=== PATIENT | male | born 1950 | race Caucasian/White ===

== ENCOUNTER → 2016-08-21 | Outpatient (CLI) | payer OTHER ==
[2016-02-24 06:00] VITALS: BP 196/84
[~2016-08-21] MED LIST: AMLO10TA2 PO; ASPI325T4 PO; ATEN100T PO; CHOL500015 PO; CIPR500T94 PO; CLIN-44 PO; CYAN500T17 PO; FURO80TA3 PO; HYDR-2869 PO; ISOS60TA2 PO; LISI40TA PO; LOVA40TA2 PO; METF500T4 PO; METF500T9 PO; MULT-246 PO; OMEG300C PO; OMEP40CA5 PO; POTA10TA31 PO; SERT100T8 PO
--- NOTE | 2016-08-21 12:53 | CARD ---
APPROVED REPORT EXAM: Two-dimensional and M-mode echocardiogram with Doppler and color Doppler. Other Information Quality : FairHR: 65bpm Rhythm : NSR INDICATION Peripheral edema, Dyspnea on exertion RISK FACTORS Hypertension Obesity Family History Diabetes 2D DIMENSIONS RVDd2.6 (2.9-3.5cm)Left Atrium(2D)4.1 (1.6-4.0cm) IVSd1.0 (0.7-1.1cm)Aortic Root(2D)3.2 (2.0-3.7cm) LVDd6.1 (3.9-5.9cm)LVOT Diameter2.4 (1.8-2.4cm) PWd1.0 (0.7-1.1cm)LVDs4.3 (2.5-4.0cm) FS (%) 30.3 %SV106.6 ml LVEF(%)56.8 (>50%) Aortic Valve AoV Peak Angelo.126.7cm/sAoV VTI28.2cm AO Peak GR.6.4mmHgLVOT Peak Angelo.96.3cm/s AO Mean GR.4mmHgAVA (VMAX)3.31cm2 Mitral Valve MV E Uahhqnbl896.2cm/sMV E Peak Gr.3mmHg MV DECEL [id number] A Affitlva88.1cm/s MV E Mean Gr.1mmHgE/A Ratio2.3 MV A [id number] Pulmonary Valve PV Peak Wmykjsyq800.4cm/s Pulmonary Vein S1 Wjtodzub17.8cm/sD2 Rtubzuxl33.1cm/s PVa [id number] LEFT VENTRICLE The left ventricle is normal size. There is normal left ventricular wall thickness. The left ventricu lar systolic function is normal. The Ejection Fraction is 55-60%. There is normal LV segmental wall m otion. The left ventricular diastolic function and filling is normal for age. RIGHT VENTRICLE The right ventricle is normal size. There is normal right ventricular wall thickness. The right ventr icular systolic function is normal. ATRIA The left atrium is mildly dilated. The right atrium size is normal. The interatrial septum is intact with no evidence for an atrial septal defect or patent foramen ovale as noted on 2-D or Doppler imagi ng. AORTIC VALVE The aortic valve is mildly sclerotic. The aortic valve is trileaflet. Doppler and Color Flow revealed no significant aortic regurgitation. There is no significant aortic valvular stenosis. MITRAL VALVE Mitral annular calcification is mild. The mitral valve leaflets are thickened. There is no evidence o f mitral valve prolapse. There is no mitral valve stenosis. Doppler and Color Flow revealed no mitral valve regurgitation noted. TRICUSPID VALVE The tricuspid valve is normal in structure and function. Doppler and Color Flow revealed trace tricus pid valve regurgitation. There is no pulmonary hypertension. PULMONIC VALVE Doppler and Color Flow revealed trace pulmonic valvular regurgitation. There is no pulmonic valvular stenosis. GREAT VESSELS The aortic root is normal in size. The ascending aorta is normal in size. The pulmonary artery is nor mal. The IVC is normal in size and collapses >50% with inspiration. PERICARDIAL EFFUSION There is no evidence of significant pericardial effusion. Critical Notification Critical Value: No <Conclusion> The left ventricular systolic function is normal. The Ejection Fraction is 55-60%. There is normal LV segmental wall motion. The left atrium is mildly dilated. Trace tricuspid valve regurgitation. There is no evidence of significant pericardial effusion.
== END | disposition home or self-care (01) ==
LOC: ECHO 08:48
PROVIDERS: ATTEND Physician Assistant
DX: R60.9 Edema, unspecified (principal); R06.09 Other forms of dyspnea
CPT/HCPCS: 93306

== ENCOUNTER → 2017-10-06 | Outpatient (CLI) | payer OTHER | END | disposition home or self-care (01) | LOC: US 12:36 | DX: I73.9 Peripheral vascular disease, unspecified (principal); M62.81 Muscle weakness (generalized); R60.0 Localized edema | CPT/HCPCS: 93922; 93925; 93970 ==

== ENCOUNTER 2018-11-28 02:20 | Emergency (ER) | payer MEDICARE, OTHER ==
[~2018-11-28] VITALS: Ht 177.8 cm; Wt 165.1 kg
[~2018-11-28 02:20] MED LIST changes: -AMLO10TA2 PO; +AMLO10TA8 PO; -ASPI325T4 PO; +ASPI325T8 PO; -CHOL500015 PO; +CHOL500045 PO; -CLIN-44 PO; +CLIN150C14 PO; +LISI-130 PO; -LISI40TA PO; +METF500T16 PO; -METF500T4 PO
[2018-11-28 03:41] LABS: BASO % 0 % (0-3); EOS # 0.1 x10^3/uL (0.0-0.7); EOS % 2 % (0-3); HEMATOCRIT 43.8 % (39.0-53.0); LYMPH % 22 % (24-48); MEAN CORPUSCULAR HEMOGLOBIN 31 pg (25-35); MEAN CORPUSCULAR HGB CONC 34 g/dL (31-37); MEAN CORPUSCULAR VOLUME 92 fL (79-100); MONO # 0.8 x10^3/uL (0.0-1.1); MONO % 9 % (0-9); NEUT % 68 % (31-73); PLATELET COUNT 134 x10^3/uL (140-400); RED BLOOD COUNT 4.78 x10^6/uL (4.30-5.70); RED CELL DISTRIBUTION WIDTH 14.5 % (11.5-14.5); WHITE BLOOD COUNT 8.9 x10^3/uL (4.0-11.0)
[2018-11-28] MEDS ORDERED: ONDANSETRON PF 4 MG/2 ML VIAL. IV ONE (03:45)
[2018-11-28] MEDS ORDERED: FAMOTIDINE 20 MG/2 ML VIAL IVP ONE (03:45)
[2018-11-28 03:50] LABS: PROTHROMBIN TIME PATIENT 13.6 SEC (11.7-14.0)
[2018-11-28 03:52] LABS: CALCIUM 9.2 mg/dL (8.5-10.1); CREATININE 1.4 mg/dL (0.7-1.3); GFR 50.7; POTASSIUM 3.7 mmol/L (3.5-5.1)
[2018-11-28 03:58] LABS: ALBUMIN 3.7 g/dL (3.4-5.0); ALBUMIN/GLOBULIN RATIO 0.9 (1.0-1.7); MAGNESIUM 2.1 mg/dL (1.8-2.4); TOTAL BILIRUBIN 0.4 mg/dL (0.2-1.0); TOTAL PROTEIN 7.6 g/dL (6.4-8.2)
[2018-11-28] MEDS ORDERED: CONTRAST GIVEN. MC PRN (04:00)
[2018-11-28] MEDS ORDERED: IOHEXOL 240 MG/ML 50ML VIAL. PO ONE (04:00)
[2018-11-28 04:05] VITALS: BP 162/86
[2018-11-28 05:34] LABS: BILIRUBIN,URINE NEGATIVE (NEG); CLARITY,URINE CLEAR; COLOR,URINE YELLOW; NITRITE,URINE NEGATIVE (NEG); PH,URINE 5.5; PROTEIN,URINE NEGATIVE (NEG-TRACE)
--- NOTE | 2018-11-28 05:46 | RAD ---
EXAM: CT Abdomen and Pelvis with IV contrast CLINICAL HISTORY: Upper abdominal pain. COMPARISON: none TECHNIQUE: Helical CT of the abdomen and pelvis was performed following the administration of intravenous contrast. Axial, coronal and sagittal reformatted images were generated. PQRS compliance statement - One or more of the following individualized dose reduction techniques were utilized for this study: 1. Automated exposure control 2. Adjustment of the mA and/or kV according to patient size 3. Use of iterative reconstruction technique FINDINGS: Lower chest: Linear opacities in the lower lobes likely scarring/atelectasis. Calcified granuloma right lower lobe. A 3.3 x 2.6 cm paracardiac soft tissue mass is seen. Abdomen and Pelvis: No focal liver lesion. Calcified gallstone is seen within the gallbladder. No biliary ductal dilatation. Spleen is unremarkable. Adrenal glands and pancreas are unremarkable. Multiple bilateral renal lesions are seen measuring greater than simple fluid. For example a 5.7 cm left lower pole renal lesion measures 75 Hounsfield units. Although these may represent hemorrhagic/proteinaceous cysts, parenchymal masses are not excluded and should be further assessed with by ultrasound. No hydronephrosis. No hydroureter. Bladder is unremarkable. Moderate colonic stool content is seen. Appendix is normal. No evidence for bowel obstruction. Small fat-containing periumbilical hernia is seen. Bones: Degenerative changes of the spine and SI joints are seen. No aggressive osseous lesion. IMPRESSION: 1. Fat-containing periumbilical hernia is seen. 2. Calcified gallstone is seen within the gallbladder. 3. A 3.3 cm paracardiac soft tissue mass is seen about the cardiac apex, nonspecific. This may represent an enlarged lymph node however other mediastinal mass is not excluded. This may compared to prior imaging if available. If further imaging is required consider dedicated CT chest. 4. Multiple bilateral renal lesions are seen measuring greater than simple fluid. Although these may represent hemorrhagic/proteinaceous cysts, parenchymal mass not excluded and can be further assessed by ultrasound if not previously performed. Electronically signed by: Jose Rodriguez MD (11/28/2018 5:43 AM) [facility]
[2018-11-28 06:01] LABS: BACTERIA,URINE 0 /HPF (0-FEW); RBC,URINE 0 /HPF (0-2)
[2018-11-28 06:02] LABS: SQUAMOUS EPITHELIAL CELL,UR FEW /LPF
[2018-11-28] MEDS ORDERED: FAMO-63 PO (06:42)
[2018-11-28] MEDS ORDERED: ONDA4TAB12 PO (06:42)
[2018-11-28] MEDS ORDERED: MAGN296S9 PO (06:42)
[2018-11-28] MEDS ORDERED: SENN-121 PO (06:42)
--- NOTE | 2018-11-28 06:42 | PHYS DOC ---
Past Medical History Past Medical History: CHF Additional Past Medical Histor: CLEAR CARDIAC CATH IN PAST. TURP x 2. COPD. CPAP Q hS. NO o2 DURING DAY. Past Surgical History: TURP Additional Past Surgical Histo: Adenoids, Hernia, Carpal Tunnel, Neck fusion () Alcohol Use: None Drug Use: None Adult General Chief Complaint Chief Complaint: ABDOMINAL PAIN HPI HPI Patient is a 68 year old [f__sex] who presents with [] Review of Systems Review of Systems Constitutional: Denies fever or chills [] Eyes: Denies change in visual acuity, redness, or eye pain [] HENT: Denies nasal congestion or sore throat [] Respiratory: Denies cough or shortness of breath [] Cardiovascular: No additional information not addressed in HPI [] GI: Denies abdominal pain, nausea, vomiting, bloody stools or diarrhea [] : Denies dysuria or hematuria [] Musculoskeletal: Denies back pain or joint pain [] Integument: Denies rash or skin lesions [] Neurologic: Denies headache, focal weakness or sensory changes [] Endocrine: Denies polyuria or polydipsia [] All other systems were reviewed and found to be within normal limits, except as documented in this note. Current Medications Current Medications Current Medications Medications (Trade) Dose Ordered Sig/Gina Start Time Stop Time Status Last Admin Dose Admin Famotidine (Pepcid Vial) 20 mg 1X ONCE 11/28/18 03:45 11/28/18 03:46 DC 11/28/18 03:56 20 MG Info (CONTRAST GIVEN -- Rx MONITORING) 1 each PRN DAILY PRN 11/28/18 04:00 11/30/18 03:59 Iohexol (Omnipaque 240 Mg/ml) 30 ml 1X ONCE 11/28/18 04:00 11/28/18 04:01 DC 11/28/18 03:49 30 ML Ondansetron HCl (Zofran) 4 mg 1X ONCE 11/28/18 03:45 11/28/18 03:46 DC 11/28/18 03:56 4 MG Allergies Allergies Allergies Coded Allergies Type Severity Reaction Last Updated Verified No Known Drug Allergies 11/07/15 No Physical Exam Physical Exam Constitutional: Well developed, well nourished, no acute distress, non-toxic appearance. [] HENT: Normocephalic, atraumatic, bilateral external ears normal, oropharynx moist, no oral exudates, nose normal. [] Eyes: PERRLA, EOMI, conjunctiva normal, no discharge. [] Neck: Normal range of motion, no tenderness, supple, no stridor. [] Cardiovascular:Heart rate regular rhythm, no murmur [] Lungs & Thorax: Bilateral breath sounds clear to auscultation [] Abdomen: Bowel sounds normal, soft, no tenderness, no masses, no pulsatile ma sses. [] Skin: Warm, dry, no erythema, no rash. [] Back: No tenderness, no CVA tenderness. [] Extremities: No tenderness, no cyanosis, no clubbing, ROM intact, no edema. [] Neurologic: Alert and oriented X 3, normal motor function, normal sensory function, no focal deficits noted. [] Psychologic: Affect normal, judgement normal, mood normal. [] Current Patient Data Vital Signs Vital Signs Date Time Temp Pulse Resp B/P (MAP) Pulse Ox O2 Delivery O2 Flow Rate FiO2 11/28/18 04:05 98.4 57 18 162/86 (111) 95 Room Air 98.4 Lab Values Laboratory Tests Test 11/28/18 03:00 11/28/18 05:25 White Blood Count 8.9 x10^3/uL (4.0-11.0) Red Blood Count 4.78 x10^6/uL (4.30-5.70) Hemoglobin 15.0 g/dL (13.0-17.5) Hematocrit 43.8 % (39.0-53.0) Mean Corpuscular Volume 92 fL (79-100) Mean Corpuscular Hemoglobin 31 pg (25-35) Mean Corpuscular Hemoglobin Concent 34 g/dL (31-37) Red Cell Distribution Width 14.5 % (11.5-14.5) Platelet Count 134 x10^3/uL (140-400) L Neutrophils (%) (Auto) 68 % (31-73) Lymphocytes (%) (Auto) 22 % (24-48) L Monocytes (%) (Auto) 9 % (0-9) Eosinophils (%) (Auto) 2 % (0-3) Basophils (%) (Auto) 0 % (0-3) Neutrophils # (Auto) 6.0 x10^3uL (1.8-7.7) Lymphocytes # (Auto) 2.0 x10^3/uL (1.0-4.8) Monocytes # (Auto) 0.8 x10^3/uL (0.0-1.1) Eosinophils # (Auto) 0.1 x10^3/uL (0.0-0.7) Basophils # (Auto) 0.0 x10^3/uL (0.0-0.2) Prothrombin Time 13.6 SEC (11.7-14.0) Prothrombin Time INR 1.1 (0.8-1.1) PTT 34 SEC (24-38) Sodium Level 141 mmol/L (136-145) Potassium Level 3.7 mmol/L (3.5-5.1) Chloride Level 103 mmol/L (98-107) Carbon Dioxide Level 29 mmol/L (21-32) Anion Gap 9 (6-14) Blood Urea Nitrogen 25 mg/dL (8-26) Creatinine 1.4 mg/dL (0.7-1.3) H Estimated GFR (Cockcroft-Gault) 50.7 BUN/Creatinine Ratio 18 (6-20) Glucose Level 150 mg/dL (70-99) H Calcium Level 9.2 mg/dL (8.5-10.1) Magnesium Level 2.1 mg/dL (1.8-2.4) Total Bilirubin 0.4 mg/dL (0.2-1.0) Aspartate Amino Transferase (AST) 27 U/L (15-37) Alanine Aminotransferase (ALT) 33 U/L (16-63) Alkaline Phosphatase 76 U/L (46-116) Creatine Kinase 548 U/L (39-308) H Creatine Kinase MB (Mass) 5.0 ng/mL (0.0-3.6) H Creatine Kinase MB Relative Index 0.9 % (0-4) Troponin I Quantitative < 0.017 ng/mL (0.000-0.055) Total Protein 7.6 g/dL (6.4-8.2) Albumin 3.7 g/dL (3.4-5.0) Albumin/Globulin Ratio 0.9 (1.0-1.7) L Lipase 207 U/L (73-393) Urine Collection Type Unknown Urine Color Yellow Urine Clarity Clear Urine pH 5.5 Urine Specific [place] 1.020 Urine Protein Negative mg/dL (NEG-TRACE) Urine Glucose (UA) Negative mg/dL (NEG) Urine Ketones (Stick) Negative mg/dL (NEG) Urine Blood Negative (NEG) Urine Nitrite Negative (NEG) Urine Bilirubin Negative (NEG) Urine Urobilinogen Dipstick 1.0 mg/dL (0.2 mg/dL) Urine Leukocyte Esterase Small (NEG) Urine RBC 0 /HPF (0-2) Urine WBC 1-4 /HPF (0-4) Urine Squamous Epithelial Cells Few /LPF Urine Bacteria 0 /HPF (0-FEW) Laboratory Tests 11/28/18 03:00 Laboratory Tests 11/28/18 03:00 EKG EKG @0340 NSR at 61bpm, occasional PVC, t wave inversion III Radiology/Procedures Radiology/Procedures PROCEDURE: CT ABD PEL W/ORAL CONTRST ONLY EXAM: CT Abdomen and Pelvis with IV contrast CLINICAL HISTORY: Upper abdominal pain. COMPARISON: none TECHNIQUE: Helical CT of the abdomen and pelvis was performed following the administration of intravenous contrast. Axial, coronal and sagittal reformatted images were generated. PQRS compliance statement - One or more of the following individualized dose reduction techniques were utilized for this study: 1. Automated exposure control 2. Adjustment of the mA and/or kV according to patient size 3. Use of iterative reconstruction technique FINDINGS: Lower chest: Linear opacities in the lower lobes likely scarring/atelectasis. Calcified granuloma right lower lobe. A 3.3 x 2.6 cm paracardiac soft tissue mass is seen. Abdomen and Pelvis: No focal liver lesion. Calcified gallstone is seen within the gallbladder. No biliary ductal dilatation. Spleen is unremarkable. Adrenal glands and pancreas are unremarkable. Multiple bilateral renal lesions are seen measuring greater than simple fluid. For example a 5.7 cm left lower pole renal lesion measures 75 Hounsfield units. Although these may represent hemorrhagic/proteinaceous cysts, parenchymal masses are not excluded and should be further assessed with by ultrasound. No hydronephrosis. No hydroureter. Bladder is unremarkable. Moderate colonic stool content is seen. Appendix is normal. No evidence for bowel obstruction. Small fat-containing periumbilical hernia is seen. Bones: Degenerative changes of the spine and SI joints are seen. No aggressive osseous lesion. IMPRESSION: 1. Fat-containing periumbilical hernia is seen. 2. Calcified gallstone is seen within the gallbladder. 3. A 3.3 cm paracardiac soft tissue mass is seen about the cardiac apex, nonspecific. This may represent an enlarged lymph node however other mediastinal mass is not excluded. This may compared to prior imaging if available. If further imaging is required consider dedicated CT chest. 4. Multiple bilateral renal lesions are seen measuring greater than simple fluid. Although these may represent hemorrhagic/proteinaceous cysts, parenchymal mass not excluded and can be further assessed by ultrasound if not previously performed. Electronically signed by: Jose Rodriguez MD (11/28/2018 5:43 AM) [facility] Course & Med Decision Making Course & Med Decision Making Pertinent Labs and Imaging studies reviewed. (See chart for details) [] Dragon Disclaimer Dragon Disclaimer This electronic medical record was generated, in whole or in part, using a voice recognition dictation system. Departure Departure Impression: Primary Impression: Abdominal pain Additional Impressions: Constipation Hernia Abnormal CT of the abdomen Disposition: HOME, SELF-CARE Condition: STABLE Referrals: RONI WILEY MD (PCP) YOLETTE ALLEN MD Patient Instructions: Abdominal Pain (Nonspecific), Constipation, Adult, [id number], Hernia, [id number], Incidental Abnormal Radiological Finding Additional Instructions: Please given copy of CT imaging to your family physician for further evaluation. Scripts Magnesium Citrate (MAGNESIUM CITRATE) 296 Ml Solution 296 ML PO ONCE, #296 ML Prov: TAI YODER DO 11/28/18 Sennosides/Docusate Sodium (Colace 2-in-1 Tablet) 1 Each Tablet 1 EACH PO QHS, #20 TAB Prov: TAI YODER DO 11/28/18 Famotidine (PEPCID) 20 Mg Tablet 20 MG PO BID, #20 TAB Prov: TAI YODER DO 11/28/18 Ondansetron (ONDANSETRON ODT) 4 Mg Tab.rapdis 1 TAB PO PRN Q6-8HRS PRN for NAUSEA, #16 TAB Prov: TAI YODER DO 11/28/18 Problem Qualifiers Primary Impression: Abdominal pain Abdominal location: generalized Qualified Codes: R10.84 - Generalized abdominal pain Additional Impressions: Constipation Constipation type: unspecified constipation type Qualified Codes: K59.00 - Constipation, unspecified TAI YODER DO Nov 28, 2018 06:42
--- NOTE | 2018-11-28 13:01 | EKG ---
[facility] [address] [place] [address] Test Date: 2018-11-28 Test Time: 03:40:54 Pat Name: RITU BRIAN Department: Room: Gender: M [employer] Electric[employer]: : 1950 Requested By: TAI YODER Order Number: [id number] Reading MD: Measurements Intervals [place] Rate: 60 P: AK: QRS: -71 QRSD: 100 T: -5 QT: 428 QTc: 432 Interpretive Statements ATRIAL FIBRILLATION VENTRICULAR PREMATURE COMPLEX(ES) ABNORMAL LEFT AXIS DEVIATION QRS(T) CONTOUR ABNORMALITY CONSIDER ANTEROSEPTAL MYOCARDIAL DAMAGE CONSISTENT WITH INFERIOR INFARCT AGE UNDETERMINED ABNORMAL ECG No previous ECG available for comparison
== END 2018-11-28 06:45 | disposition home or self-care (01) ==
LOC: ER 02:20
DX: K42.9 Umbilical hernia without obstruction or gangrene (principal); K59.00 Constipation, unspecified; R93.5 Abnormal findings on diagnostic imaging of other abdominal regions, including retroperitoneum; K80.80 Other cholelithiasis without obstruction; J44.9 Chronic obstructive pulmonary disease, unspecified; Z98.1 Arthrodesis status; Z98.890 Other specified postprocedural states; Z86.79 Personal history of other diseases of the circulatory system
CPT/HCPCS: 36415; 74176; 80053; 81001; 82553; 83690; 83735; 84484; 85025; 85610; 85730; 87086; 93005; 96374; 96375; 99285; J2405; J3490; Q9966

== ENCOUNTER → 2018-12-08 | Outpatient (CLI) | payer MEDICARE ==
[2018-11-28 04:05] VITALS: BP 162/86
[~2018-12-08] MED LIST changes: +FAMO-63 PO; +MAGN296S9 PO; +ONDA4TAB12 PO; +SENN-121 PO
--- NOTE | 2018-12-08 14:43 | RAD ---
CT scan of the chest without contrast 12/08/2018 CLINICAL HISTORY: 3.3 cm paracardiac soft tissue mass seen on CT scan of the abdomen. TECHNIQUE: Unenhanced, contiguous, 5 mm axial sections were obtained through the chest and upper abdomen. One or more of the following individualized dose reduction techniques were utilized for this study: 1. Automated exposure control. 2. Adjustment of the mA and/or kV according to patient size. 3. Use of iterative reconstruction technique. FINDINGS: Comparison is made to patient's CT scan of the abdomen dated 11/28/2018. Atherosclerotic calcification of the thoracic aorta is seen. The thoracic aorta tapers normally. Calcified right hilar and mediastinal lymph nodes are seen. There is mild cardiomegaly. No hilar, mediastinal or axillary lymphadenopathy is noted. Calcified granulomas are seen involving the right lower lobe, unchanged. A 2.4 cm bulla/bleb is seen involving the medial aspect of the right upper lobe. Minimal dependent subsegmental atelectasis is seen involving both lungs. No area of consolidation is seen. No pleural effusion or pneumothorax is noted. A 3.5 cm oval-shaped low-attenuation mass is seen within the epicardial fat near the apex of the heart. This likely represents a pericardial cyst. It is unchanged. Images through the upper abdomen are unchanged. Degenerative changes are seen involving the thoracic spine. Mild S-shaped curvature of the thoracolumbar spine is seen. IMPRESSION: 1. 3.5 cm probable pericardial cyst is seen in the apex of the heart. This corresponds seen on the patient's CT scan of the abdomen. 2. No acute abnormality is seen. Electronically signed by: Franki Tobias MD (12/08/2018 2:40 PM) [place] [id number]
--- NOTE | 2018-12-08 16:16 | RAD ---
RENAL COMPLETE BILATERAL History: Renal lesion Comparison: November 28, 2018 CT abdomen pelvis exam Findings: Multiple sonographic images of the kidneys and urinary bladder are submitted. Right kidney measured 21 x 6.4 x 9.3 cm. Left kidney measured 17.3 x 6.1 x 7.5 cm. Measurements include multiple hypoechoic lesions of the bilateral kidneys. Largest hypoechoic lesion superiorly of the right kidney measured about 9.9 cm. Largest lesion of the superior left kidney measures about 7.8 cm. No hypervascular solid lesion is demonstrated by ultrasound. There is no significant hydronephrosis of either kidney. Urinary bladder is not well-distended for evaluation. Impression: 1. There are multiple likely cysts of the bilateral kidneys, no significant hydronephrosis of either kidney. Electronically signed by: Young Fuentes MD (12/08/2018 4:13 PM) [facility]
== END | disposition home or self-care (01) ==
LOC: US 10:39
PROVIDERS: ATTEND Physician Assistant Medical
DX: J98.11 Atelectasis (principal); J98.4 Other disorders of lung; J84.10 Pulmonary fibrosis, unspecified; I51.7 Cardiomegaly; I70.0 Atherosclerosis of aorta; N28.89 Other specified disorders of kidney and ureter; M47.894 Other spondylosis, thoracic region
CPT/HCPCS: 71250; 76770

== ENCOUNTER → 2019-03-17 | Outpatient (CLI) | payer MEDICARE ==
[~2019-03-17] MED LIST changes: +METF500T11 PO; -METF500T9 PO; +OMEP40CA45 PO; -OMEP40CA5 PO
--- NOTE | 2019-03-17 09:39 | CARD ---
MR#: [id number] Date of Study: 03/17/2019 Ordering Physician: BELLA HAYS, Referring Physician: BELLA HAYS, Tech: Leonila Rogel [facility] APPROVED REPORT EXAM: Two-dimensional and M-mode echocardiogram with Doppler and color Doppler. Other Information Quality : Technically LimitedHR: 77bpm Rhythm : NSRTechnically limited study due to body habitus. INDICATION Pericardial Cyst 2D DIMENSIONS RVDd3.1 (2.9-3.5cm)Left Atrium(2D)5.0 (1.6-4.0cm) IVSd1.0 (0.7-1.1cm)Aortic Root(2D)3.2 (2.0-3.7cm) LVDd5.0 (3.9-5.9cm)LVOT Diameter2.4 (1.8-2.4cm) PWd1.2 (0.7-1.1cm)LVDs2.3 (2.5-4.0cm) FS (%) 54.8 %SV101.5 ml LVEF(%)85.3 (>50%) Aortic Valve AoV Peak Angelo.135.3cm/sAoV VTI27.2cm AO Peak GR.7.3mmHgLVOT Peak Angelo.117.7cm/s LVOT VTI 23.23cmAO Mean GR.5mmHg SUDHAKAR (VMAX)2.63ew6BJF (VTI)3.85cm2 Mitral Valve MV E Diysafzb642.1cm/sMV DECEL PAIT330xk MV A Wvnmkjfc64.4cm/sMV DKS39mb E/A Ratio2.7MVA (PHT)3.84cm2 Pulmonary Valve PV Peak Pasctdjj89.5cm/sPV Peak Grad.3mmHg Pulmonary Vein S1 Kyyvpwei78.4cm/sD2 Vnkujfkk50.9cm/s LEFT VENTRICLE The left ventricle is normal size. There is normal left ventricular wall thickness. The left ventricu lar systolic function is normal. The Ejection Fraction is 60-65%. There is normal LV segmental wall m otion. Transmitral Doppler flow pattern is Grade II-pseudonormal filling dynamics. RIGHT VENTRICLE The right ventricle is normal size. There is normal right ventricular wall thickness. The right ventr icular systolic function is normal. ATRIA The left atrium is moderately dilated. The right atrium is mildly dilated. The interatrial septum is intact with no evidence for an atrial septal defect or patent foramen ovale as noted on 2-D or Dopple r imaging. AORTIC VALVE The aortic valve is thickened but opens well. The aortic valve is trileaflet. Doppler and Color Flow revealed no significant aortic regurgitation. There is no significant aortic valvular stenosis. MITRAL VALVE The mitral valve is normal in structure and function. There is no evidence of mitral valve prolapse. There is no mitral valve stenosis. Doppler and Color-flow revealed trace mitral regurgitation. TRICUSPID VALVE The tricuspid valve is normal in structure and function. Doppler and Color Flow revealed no tricuspid valve regurgitation noted. There is no tricuspid valve prolapse or vegetation. There is no tricuspid valve stenosis. PULMONIC VALVE The pulmonic valve is not well visualized. GREAT VESSELS The aortic root is normal in size. The ascending aorta is normal in size. The IVC is normal in size a nd collapses >50% with inspiration. PERICARDIAL EFFUSION There is no evidence of significant pericardial effusion. Critical Notification Critical Value: No <Conclusion> The left ventricular systolic function is normal. The Ejection Fraction is 60-65%. There is normal LV segmental wall motion. Trace mitral regurgitation. There is no evidence of significant pericardial effusion. Signed by : Len Mccall, Electronically Approved : 03/17/2019 09:39:13
== END | disposition home or self-care (01) ==
LOC: ECHO 07:48
PROVIDERS: ATTEND Internal Medicine Cardiovascular Disease
DX: Q24.8 Other specified congenital malformations of heart (principal)
CPT/HCPCS: 93306

== ENCOUNTER → 2019-04-07 | Outpatient (CLI) | payer MEDICARE | END | disposition home or self-care (01) | LOC: OPS 11:15 | PROVIDERS: ATTEND Family Medicine | DX: N30.01 Acute cystitis with hematuria (principal); R33.8 Other retention of urine | CPT/HCPCS: 51798 ==

== ENCOUNTER → 2019-07-18 | Outpatient (CLI) | payer MEDICARE ==
[~2019-07-18] MED LIST changes: +CONTRAST GIVEN. MC PRN; +IOHEXOL 300 MG/ML 100ML VIAL. IV ONE; +MAGN296S68 PO; -MAGN296S9 PO
[2019-07-18 08:54] LABS: CREATININE 1.3 mg/dL (0.7-1.3); GFR 55.1
--- NOTE | 2019-07-18 15:57 | RAD ---
CT the chest with and without IV contrast compared to similar exam dated December 08, 2018 for pericardial cyst. TECHNIQUE AND FINDINGS: Contiguous helical 3 mm axial images are obtained from the thoracic inlet to the base of diaphragm both before and after administration of IV contrast. Sagittal and coronal reformations are evaluated. FINDINGS:There is respiratory motion artifact degrading the spatial resolution the lungs to some extent. There is likely some degree of pulmonary edema at the lung bases. Densely calcified granuloma seen in the right posterior lung base. No areas of pneumonic infiltrate are seen and no suspicious lung nodules or masses are evident. Central airways are patent. Heart is enlarged. There are numerous calcified hilar lymph nodes. No suspicious mediastinal, hilar, or axillary lymphadenopathy is seen. There are renal cysts bilaterally which are incompletely evaluated on this exam. No grossly suspicious features of the visualized portions of these cysts are identified. Remaining visualized upper abdominal organs are grossly unremarkable as well. The previously described circumscribed ovoid structure within the anterior pericardium is redemonstrated and appears unchanged in morphology but is slightly enlarged today measuring 4.4 x 2.6 cm. This abnormality has Hounsfield units of 24 on noncontrast imaging, which is higher than expected for simple fluid, but does not enhance, with Hounsfield images units of 27 on contrast enhanced imaging. This likely represents a benign pericardial cyst with complex fluid, but could likely be definitively characterized as simple and benign with echocardiography if clinically warranted. IMPRESSION: 1. Interval development of cardiomegaly with pulmonary edema. No pleural effusions. 2. 4.4 cm ovoid circumscribed nonenhancing benign-appearing epicardial abnormality which is slightly larger than on the prior examination, and most likely represents a benign pericardial cyst. Fluid is slightly higher than expected for simple fluid. If clinically warranted, definitive characterization via transthoracic echocardiography could be pursued. RS Compliance Statement: One or more of the following individualized dose reduction techniques were utilized for this examination: 1. Automated exposure control 2. Adjustment of the mA and/or kV according to patient size 3. Use of iterative reconstruction technique Electronically signed by: Constantino Friedman MD (07/18/2019 3:55 PM) [facility]
== END | disposition home or self-care (01) ==
LOC: CT 08:38
PROVIDERS: ATTEND Internal Medicine Cardiovascular Disease
DX: J81.1 Chronic pulmonary edema (principal); I51.7 Cardiomegaly; J84.10 Pulmonary fibrosis, unspecified; Q24.8 Other specified congenital malformations of heart
CPT/HCPCS: 36415; 71270; 82565; 84520; Q9967

== ENCOUNTER 2019-08-07 11:23 | Observation (INO) | payer MEDICARE ==
[~2019-08-07] VITALS: Ht 177.8 cm; Wt 166.9 kg
[~2019-08-07 11:23] MED LIST changes: -CONTRAST GIVEN. MC PRN; -IOHEXOL 300 MG/ML 100ML VIAL. IV ONE
--- NOTE | 2019-08-07 11:51 | PHYS DOC ---
Past Medical History Past Medical History: CHF Additional Past Medical Histor: CLEAR CARDIAC CATH IN PAST. TURP x 2. COPD. CPAP Q hS. NO o2 DURING DAY. Past Surgical History: TURP Additional Past Surgical Histo: Adenoids, Hernia, Carpal Tunnel, Neck fusion () Smoking Status: Never Smoker Alcohol Use: None Drug Use: None Adult General Chief Complaint Chief Complaint: CHEST PAIN HPI HPI Patient is a 69-year-old male who presents to the emergency department for evaluation. He states that about 10:30 AM this morning he began experiencing some anterior chest pressure, which has been waxing and waning. The pain is also described as an achiness. He has had associated shortness of breath, but denies any pleuritic pain. He has not had any fevers, chills, or cough. He denies any nausea, vomiting, or diaphoresis. He states about a week ago he had a similar episode of pain, which resolved after he belched, but this does not necessarily feel like heartburn. He does not have any known coronary history but does have a history of atrial fibrillation and takes Eliquis. He also takes a baby aspirin once a day and did take an aspirin this morning. There are no alleviating or exacerbating factors to his symptoms. Assuming a negative troponin, the patient's HEART score would be a 5. Review of Systems Review of Systems Constitutional: Denies fever or chills [] Eyes: Denies change in visual acuity, redness, or eye pain [] HENT: Denies nasal congestion or sore throat [] Respiratory: Denies cough or pleuritic pain [] Cardiovascular: No additional information not addressed in HPI [] GI: Denies abdominal pain, nausea, vomiting, bloody stools or diarrhea [] : Denies dysuria or hematuria [] Musculoskeletal: Denies back pain or joint pain [] Integument: Denies rash or skin lesions [] Neurologic: Denies headache, focal weakness or sensory changes [] Endocrine: Denies polyuria or polydipsia [] All other systems were reviewed and found to be within normal limits, except as documented in this note. Current Medications Current Medications Current Medications Medications (Trade) Dose Ordered Sig/Gina Start Time Stop Time Status Last Admin Dose Admin Aspirin (Children'S Aspirin) 81 mg 1X ONCE 08/07/19 12:00 08/07/19 12:01 DC 08/07/19 12:01 81 MG Multi-Ingredient Mouthwash/Gargle (Gi Cocktail) 20 ml 1X ONCE 08/07/19 12:00 08/07/19 12:01 DC 08/07/19 12:01 20 ML Nitroglycerin (Nitrostat) 0.4 mg PRN Q5MIN PRN 08/07/19 12:00 08/07/19 12:01 0.4 MG Allergies Allergies Allergies Coded Allergies Type Severity Reaction Last Updated Verified No Known Drug Allergies 11/07/15 No Physical Exam Physical Exam PHYSICAL EXAM: CONSTITUTIONAL: Well developed, well nourished HEAD: normocephalic, atraumatic EENT: PERRL, EOMI. Conjunctivae normal color, sclerae non-icteric; moist mucous membranes. NECK: Supple, non-tender; no meningismus. LUNGS: Lungs CTA, breathing even and unlabored. Normal air movement. HEART: Irregularly irregular rhythm, no murmur CHEST: No deformity; non-tender ABDOMEN: The abdomen is soft, and non-tender, no masses or bruits. EXTREM: Normal ROM; no deformity, no calf tenderness. Normal pulses palpable in all extremities. There is 1+ bilateral pitting pedal edema, along with changes of chronic venous stasis. SKIN: No rash; no diaphoresis NEURO: Alert; normal speech and cognition; CN's grossly intact; strength grossly intact without focal deficit. BACK: No CVA TTP. Current Patient Data Vital Signs Vital Signs Date Time Temp Pulse Resp B/P (MAP) Pulse Ox O2 Delivery O2 Flow Rate FiO2 08/07/19 12:01 60 152/83 08/07/19 11:25 97.7 16 96 Room Air 97.7 Lab Values Laboratory Tests Test 08/07/19 11:31 White Blood Count 7.9 x10^3/uL (4.0-11.0) Red Blood Count 4.81 x10^6/uL (4.30-5.70) Hemoglobin 14.7 g/dL (13.0-17.5) Hematocrit 44.0 % (39.0-53.0) Mean Corpuscular Volume 92 fL (79-100) Mean Corpuscular Hemoglobin 31 pg (25-35) Mean Corpuscular Hemoglobin Concent 34 g/dL (31-37) Red Cell Distribution Width 14.6 % (11.5-14.5) H Platelet Count 146 x10^3/uL (140-400) Neutrophils (%) (Auto) 67 % (31-73) Lymphocytes (%) (Auto) 20 % (24-48) L Monocytes (%) (Auto) 10 % (0-9) H Eosinophils (%) (Auto) 2 % (0-3) Basophils (%) (Auto) 1 % (0-3) Neutrophils # (Auto) 5.3 x10^3/uL (1.8-7.7) Lymphocytes # (Auto) 1.6 x10^3/uL (1.0-4.8) Monocytes # (Auto) 0.8 x10^3/uL (0.0-1.1) Eosinophils # (Auto) 0.1 x10^3/uL (0.0-0.7) Basophils # (Auto) 0.0 x10^3/uL (0.0-0.2) Sodium Level 143 mmol/L (136-145) Potassium Level 4.3 mmol/L (3.5-5.1) Chloride Level 106 mmol/L (98-107) Carbon Dioxide Level 31 mmol/L (21-32) Anion Gap 6 (6-14) Blood Urea Nitrogen 22 mg/dL (8-26) Creatinine 1.3 mg/dL (0.7-1.3) Estimated GFR (Cockcroft-Gault) 55.1 BUN/Creatinine Ratio 17 (6-20) Glucose Level 139 mg/dL (70-99) H Calcium Level 9.0 mg/dL (8.5-10.1) Magnesium Level 1.9 mg/dL (1.8-2.4) Total Bilirubin 0.4 mg/dL (0.2-1.0) Aspartate Amino Transferase (AST) 26 U/L (15-37) Alanine Aminotransferase (ALT) 32 U/L (16-63) Alkaline Phosphatase 71 U/L (46-116) Troponin I Quantitative < 0.017 ng/mL (0.000-0.055) CR-Twn-P-Type Natriuretic Peptide 1097 pg/mL (0-124) H Total Protein 7.7 g/dL (6.4-8.2) Albumin 3.6 g/dL (3.4-5.0) Albumin/Globulin Ratio 0.9 (1.0-1.7) L Lipase 235 U/L (73-393) Laboratory Tests 08/07/19 11:31 Laboratory Tests 08/07/19 11:31 EKG EKG Atrial fibrillation at a rate of 53 bpm, left axis deviation, normal intervals, nonspecific ST/T changes. [] Radiology/Procedures Radiology/Procedures ER physician preliminary chest x-ray report: No acute abnormality. [] Course & Med Decision Making Course & Med Decision Making Pertinent Labs and Imaging studies reviewed. (See chart for details) [] 12:50 PM: The patient's condition remains stable. I spoke with the hospitalist, who accepted the patient to the hospital for further evaluation and treatment. Dragon Disclaimer Dragon Disclaimer This electronic medical record was generated, in whole or in part, using a voice recognition dictation system. Departure Departure Impression: Primary Impression: Chest pain Disposition: ADMITTED INPATIENT Admitting Physician: Mary Ellen Navarro Condition: STABLE Referrals: RONI WILEY MD (PCP) RONI MELGAR MD Aug 07, 2019 11:51
[2019-08-07] MEDS ORDERED: LIDO:MAALOX 1:1 20 ML SINGLE DOSE. SWSW ONE (12:00)
[2019-08-07] MEDS ORDERED: ASPIRIN CHEWABLE 81 MG TABLET. PO ONE (12:00)
[2019-08-07] MEDS: NITROGLYCERIN SUBLINGUAL 0.4 MG BOTTLE OF 25. SL PRN ×2 (12:01→13:15)
[2019-08-07 12:19] LABS: BASO % 1 % (0-3); EOS # 0.1 x10^3/uL (0.0-0.7); EOS % 2 % (0-3); HEMOGLOBIN 14.7 g/dL (13.0-17.5); LYMPH # 1.6 x10^3/uL (1.0-4.8); LYMPH % 20 % (24-48); MEAN CORPUSCULAR HEMOGLOBIN 31 pg (25-35); MEAN CORPUSCULAR HGB CONC 34 g/dL (31-37); MEAN CORPUSCULAR VOLUME 92 fL (79-100); MONO # 0.8 x10^3/uL (0.0-1.1); MONO % 10 % (0-9); NEUT # 5.3 x10^3/uL (1.8-7.7); NEUT % 67 % (31-73); PLATELET COUNT 146 x10^3/uL (140-400); RED BLOOD COUNT 4.81 x10^6/uL (4.30-5.70); RED CELL DISTRIBUTION WIDTH 14.6 % (11.5-14.5); WHITE BLOOD COUNT 7.9 x10^3/uL (4.0-11.0)
[2019-08-07 12:24] LABS: CREATININE 1.3 mg/dL (0.7-1.3); GFR 55.1; POTASSIUM 4.3 mmol/L (3.5-5.1)
[2019-08-07 12:30] LABS: ALBUMIN 3.6 g/dL (3.4-5.0); ALBUMIN/GLOBULIN RATIO 0.9 (1.0-1.7); MAGNESIUM 1.9 mg/dL (1.8-2.4); TOTAL BILIRUBIN 0.4 mg/dL (0.2-1.0); TOTAL PROTEIN 7.7 g/dL (6.4-8.2)
--- NOTE | 2019-08-07 12:54 | RAD ---
Exam performed: One view chest. Indication: Chest pain Date of Service: 08/07/2019 12:06 PM Comparison: One view chest from 02/24/[address] chest with and without contrast from 07/18/2019. Single AP upright portable view chest findings: Cardiomediastinal silhouette is mildly enlarged. Pulmonary vascularity appears unremarkable.. No acute infiltrates, effusion or pneumothorax is detected. The bony structures are normal. Impression: Mild cardiomegaly No acute pulmonary process is detected. Electronically signed by: Lili Brian MD (08/07/2019 12:50 PM) [id number]
[2019-08-07 14:00] VITALS: BP 152/71
[2019-08-07] MEDS ORDERED: TAMS0.4C97 PO (17:16)
[2019-08-07] MEDS ORDERED: ESCITALOPRAM OX20 MG PO (17:16)
[2019-08-07] MEDS ORDERED: ACET500T68 PO (17:16)
[2019-08-07] MEDS ORDERED: FINA1TAB3 PO (17:16)
[2019-08-07] MEDS ORDERED: APIX5TAB PO (17:16)
[2019-08-07] MEDS ORDERED: METF500T16 PO (17:16)
[2019-08-07] MEDS ORDERED: ASPI-612 PO (17:16)
[2019-08-07] MEDS ORDERED: ONDANSETRON ODT 4 MG TAB.RAPDIS. PO PRN (18:00)
[2019-08-07] MEDS ORDERED: ACETAMINOPHEN 500 MG TABLET PO PRN (18:00)
--- NOTE | 2019-08-07 19:47 | EKG ---
[facility] [address] [place] [address] Test Date: 2019-08-07 Test Time: 11:32:25 Pat Name: RITU BRIAN Department: Room: Gender: M Rn Managed Care: : 1950 Requested By: RONI MELGAR Order Number: [id number] Reading MD: Measurements Intervals Dema Rate: 52 P: ME: QRS: -53 QRSD: 92 T: 3 QT: 420 QTc: 396 Interpretive Statements ATRIAL FIBRILLATION ABNORMAL LEFT AXIS DEVIATION QRS(T) CONTOUR ABNORMALITY CONSISTENT WITH INFERIOR INFARCT PROBABLY OLD ABNORMAL ECG No previous ECG available for comparison
[2019-08-07 19:50] VITALS: BP 164/93
[2019-08-07] MEDS: ATORVASTATIN CALCIUM 10 MG TABLET. PO SCH (20:59)
[2019-08-07 23:15] VITALS: BP 165/81
[2019-08-08] VITALS (13 sets, daily range): BP systolic 127–172; BP diastolic 65–92
--- NOTE | 2019-08-08 08:13 | PDOC1 ---
H & P. HPI: Mr. Espinal is a 69 yo male with PMH of hypertension, type 2 diabetes, chronic kidney disease, depression, A. fib, BPH, COPD, hyperlipidemia, sleep apnea, who presented to the emergency room yesterday for substernal chest pain. He stated that pain started in mid morning yesterday. He describes pain as chest pressure and achiness, waxing and waning. Pain was associated with shortness of breath. Pain not worse with respirations. Denied fevers, chills, cough, nausea, vomiting, or diaphoresis. He had a similar episode about a week ago that seemed to resolve with belching. A cardiac cath in 2013 was essential normal. A nuclear stress test in 2017 showed no ischemic changes but did show concerns for possible multivessel disease. Echo 03/2019 was normal. Labs and EKGs in ED were unremarkable. CXR showed mild cardiomegaly. ROS: Constitutional: Denies fever, fatigue, chills HEENT: Denies sore throat, vision changes Cardio: Admits chest pain, dyspnea with exertion, edema, denies syncope, palpitations Pulmonary: Admits shortness of breath, denies cough, wheezing GI: Denies nausea, vomiting, diarrhea, constipation : Denies dysuria, frequency, urgency, incontinence Skin: Denies new lesions Neuro: Denies weakness, paresthesias PMH: As above FAMILY HX: Father had history of diabetes and CHF. Daughter has diabetes and hypertension. Siblings have heart disease, stroke, diabetes. Older brother had CABG x 3 at age 77. SOCIAL HX: Nonsmoker, no significant alcohol or drug use. SURGICAL HX: Last heart catheter was in 2017 and reportedly showed mild obstruction of RCA. Status post tonsillectomy, carpal tunnel release on the right, cervical fusion of C2-4. MEDS: Reviewed and reconciled ALLERGIES: Reviewed PE: Alert, oriented, no acute distress EOMI, sclera non-icteric Neck supple Afib, bradycardic, no murmur CTAB, no wheezes, crackles or rhonchi Soft, NT, ND, obese 1-2+ pitting edema in b/l legs to knees, no cyanosis. Normal capillary refill. Calm, cooperative, mood/affect within normal limits ASSESSMENT & PLAN: Chest pain, concerning for cardiac source Hypertension Type 2 diabetes Chronic kidney disease Atrial fibrillation, HR 40s-50s COPD Hyperlipidemia Sleep apnea Serial troponins have been negative. Cardiology has been consulted. Given possible multivessel disease on 2016 stress test, would benefit from stress test vs cath per cards recs. ALISHA GLEZ MD Aug 08, 2019 08:12
[2019-08-08] MEDS: TAMSULOSIN 0.4 MG CAP.ER.24H. PO SCH (08:50)
[2019-08-08] MEDS: FUROSEMIDE 80 MG TABLET. PO SCH (08:50)
[2019-08-08] MEDS: amLODIPine BESYLATE 10 MG TABLET PO SCH (08:50)
[2019-08-08] MEDS: LISINOPRIL 20 MG TABLET PO SCH (08:51)
[2019-08-08] MEDS: PANTOPRAZOLE 40 MG TABLET.DR. PO SCH (08:51)
[2019-08-08] MEDS: ASPIRIN ENTERIC COATED 81 MG TABLET.DR. PO SCH ×2 (08:51→18:16)
[2019-08-08] MEDS ORDERED: metFORMIN 500 MG TABLET PO SCH (09:00)
[2019-08-08] MEDS ORDERED: ATENOLOL 50 MG TABLET. PO SCH (09:00)
[2019-08-08] MEDS ORDERED: FINASTERIDE PO SCH (09:00)
[2019-08-08 09:32] LABS: CHOLESTEROL/HDL RATIO 4.5
[2019-08-08] MEDS: IV NORMAL SALINE 1000ML BAG 1,000 ML IV SCH ×2 (11:09→21:09)
--- NOTE | 2019-08-08 11:09 | PDOC2 ---
CONSULT Date of Consult Date of Consult DATE: 08/08/19 TIME: 11:00 Reason for Consult Reason for Consult: Chest pain Referring Physician Referring Physician: Dr. Navarro Identification/Chief Complaint Chief Complaint Chest pain Source Source: Chart review, Patient History of Present Illness Reason for Visit: The patient is a 69-year-old male who was admitted through the emergency room for episodes of chest pain. Patient states the pain started yesterday it was a pressure-like feeling in his upper chest. It radiated mildly to his neck. It was not clearly related to exertion. Initial testing shows a normal troponin. EKG shows atrial fibrillation but no acute ischemic changes. The patient has a history of mild to moderate coronary disease with a catheterization in 2017 he is [address] Wynn that showed a 30-50% right coronary artery lesion. The patient is also been found to have a pericardial cyst. A CT scan on 07/18/19 showed a 4.4 x 2.6 cm pericardial cyst that was unchanged in morphology but slightly enlarged from a previous test. It was most consistent with a benign pericardial cyst. Patient additionally has a history of hypertension, atrial fibrillation for which she has been on Eliquis, chronic kidney disease with a stable creatinine of 1.3, COPD, obesity with sleep apnea and borderline diabetes. This morning the patient is feeling significantly better but still has mild discomfort. Past Medical History Cardiovascular: AFIB, CAD, HTN, Hyperlipidemia Pulmonary: COPD, Other (sleep apnea) Renal/: Chronic renal insuff Endocrine: Other (borderline diabetes) Past Surgical History Past Surgical History: Tonsillectomy, Other (C-spine repair) Family History Family History: Coronary Artery Disease, Heart Disease, Hypertension Social History No ALCOHOL: none Current Problem List Problem List Problems Medical Problems: (1) Chest pain Status: Acute Current Medications Current Medications Current Medications Multi-Ingredient Mouthwash/Gargle (Gi Cocktail) 20 ml 1X ONCE SWSW Last administered on 08/07/19at 12:01; Start 08/07/19 at 12:00; Stop 08/07/19 at 12:01; Status DC Aspirin (Children'S Aspirin) 81 mg 1X ONCE PO Last administered on 08/07/19at 12:01; Start 08/07/19 at 12:00; Stop 08/07/19 at 12:01; Status DC Nitroglycerin (Nitrostat) 0.4 mg PRN Q5MIN PRN SL CHEST PAIN Last administered on 08/07/19at 13:15; Start 08/07/19 at 12:00 Acetaminophen (Tylenol) 500 mg PRN Q6HRS PRN PO pain or fever; Start 08/07/19 at 18:00 Amlodipine Besylate (Norvasc) 10 mg DAILY PO Last administered on 08/08/19at 08:50; Start 08/08/19 at 09:00 Aspirin (Ecotrin) 81 mg DAILY PO ; Start 08/08/19 at 09:00 Furosemide (Lasix) 80 mg DAILY PO Last administered on 08/08/19at 08:50; Start 08/08/19 at 09:00 Hydralazine HCl (Apresoline) 50 mg TID PO Last administered on 08/08/19at 08:49; Start 08/07/19 at 21:00 Lisinopril (Prinivil) 40 mg DAILY PO Last administered on 08/08/19at 08:51; Start 08/08/19 at 09:00 Metformin HCl (Glucophage) 500 mg DAILY PO ; Start 08/08/19 at 09:00 Ondansetron HCl (Zofran Odt) 4 mg PRN Q8HRS PRN PO NAUSEA; Start 08/07/19 at 18:00 Potassium Chloride (Klor-Con) 20 meq DAILY PO ; Start 08/08/19 at 09:00 Tamsulosin HCl (Flomax) 0.8 mg DAILY PO Last administered on 08/08/19at 08:50; Start 08/08/19 at 09:00 Atenolol (Tenormin) 50 mg DAILY PO ; Start 08/08/19 at 09:00 Vitamin D (Vitamin D3) 5,000 unit DAILY PO ; Start 08/08/19 at 09:00 Cyanocobalamin (Vitamin B-12) 2,500 mcg DAILY PO ; Start 08/08/19 at 09:00 Citalopram Hydrobromide (CeleXA) 40 mg DAILY PO ; Start 08/08/19 at 09:00 Non-Formulary Medication (Finasteride ) 1 tab DAILY PO ; Start 08/08/19 at 09:00; Status UNV Atorvastatin Calcium (Lipitor) 10 mg QHS PO Last administered on 08/07/19at 20:59; Start 08/07/19 at 21:00 Multivitamins (Thera M Plus) 1 tab DAILY PO ; Start 08/08/19 at 09:00 Fish Oil (Fish Oil) 1,000 mg DAILY PO ; Start 08/08/19 at 09:00 Pantoprazole Sodium (Protonix) 40 mg DAILYAC PO Last administered on 08/08/19at 08:51; Start 08/08/19 at 07:30 Active Scripts Active Ondansetron Odt (Ondansetron) 4 Mg Tab.rapdis 1 Tab PO PRN Q6-8HRS PRN Reported Acetaminophen 500 Mg Tablet 1 Tab PO PRN Q6HRS PRN 15 Days Eliquis (Apixaban) 5 Mg Tablet 5 Mg PO BID Escitalopram Oxalate 20 Mg Tablet 20 Mg PO DAILY Finasteride 1 Mg Tablet 1 Tab PO DAILY 30 Days Flomax (Tamsulosin Hcl) 0.4 Mg Cap.er.24h 2 Cap PO DAILY Metformin Hcl 500 Mg Tablet 500 Mg PO DAILY Aspirin Ec (Aspirin) 81 Mg Tablet.dr 1 Tab PO DAILY Potassium Chloride 10 Meq Tab.er.prt 20 Meq PO DAILY Lovastatin 40 Mg Tablet 40 Mg PO HS Furosemide 80 Mg Tablet 80 Mg PO DAILY Lisinopril 40 Mg Tablet 40 Mg PO DAILY Omeprazole 40 Mg Capsule.dr 40 Mg PO DAILY Amlodipine Besylate 10 Mg Tablet 10 Mg PO DAILY B-12 (Cyanocobalamin (Vitamin B-12)) 500 Mcg Tablet 2,500 Mcg PO DAILY Hydralazine Hcl 50 Mg Tablet 50 Mg PO TID Vitamin D (Cholecalciferol (Vitamin D3)) 5,000 Unit Tablet 5,000 Unit PO BID Atenolol 100 Mg Tablet 50 Mg PO DAILY Multi-Vitamin Daily (Multivitamin) 1 Each Tablet 1 Each PO DAILY Fish Oil (Sweet Briar-3 Fatty Acids) 300 Mg Capsule 360 Mg PO DAILY Allergies Allergies: Coded Allergies: No Known Drug Allergies (Unverified , 11/07/15) ROS General: YES: Fatigue Cardiovascular: yes Chest Pain Physical Exam General: mild distress HEENT: Atraumatic Lungs: Clear to auscultation Heart: Other (irregular rhythm) Abdomen: Normal bowel sounds Vitals VITALS Vital Signs Date Time Temp Pulse Resp B/P (MAP) Pulse Ox O2 Delivery O2 Flow Rate FiO2 08/08/19 08:51 53 159/91 08/08/19 07:00 97.5 18 95 BiPAP/CPAP 97.5 Labs Labs Laboratory Tests Test 08/07/19 11:31 08/07/19 16:05 08/07/19 16:47 08/07/19 18:28 White Blood Count 7.9 x10^3/uL (4.0-11.0) Red Blood Count 4.81 x10^6/uL (4.30-5.70) Hemoglobin 14.7 g/dL (13.0-17.5) Hematocrit 44.0 % (39.0-53.0) Mean Corpuscular Volume 92 fL (79-100) Mean Corpuscular Hemoglobin 31 pg (25-35) Mean Corpuscular Hemoglobin Concent 34 g/dL (31-37) Red Cell Distribution Width 14.6 % (11.5-14.5) Platelet Count 146 x10^3/uL (140-400) Neutrophils (%) (Auto) 67 % (31-73) Lymphocytes (%) (Auto) 20 % (24-48) Monocytes (%) (Auto) 10 % (0-9) Eosinophils (%) (Auto) 2 % (0-3) Basophils (%) (Auto) 1 % (0-3) Neutrophils # (Auto) 5.3 x10^3/uL (1.8-7.7) Lymphocytes # (Auto) 1.6 x10^3/uL (1.0-4.8) Monocytes # (Auto) 0.8 x10^3/uL (0.0-1.1) Eosinophils # (Auto) 0.1 x10^3/uL (0.0-0.7) Basophils # (Auto) 0.0 x10^3/uL (0.0-0.2) Sodium Level 143 mmol/L (136-145) Potassium Level 4.3 mmol/L (3.5-5.1) Chloride Level 106 mmol/L (98-107) Carbon Dioxide Level 31 mmol/L (21-32) Anion Gap 6 (6-14) Blood Urea Nitrogen 22 mg/dL (8-26) Creatinine 1.3 mg/dL (0.7-1.3) Estimated GFR (Cockcroft-Gault) 55.1 BUN/Creatinine Ratio 17 (6-20) Glucose Level 139 mg/dL (70-99) Calcium Level 9.0 mg/dL (8.5-10.1) Magnesium Level 1.9 mg/dL (1.8-2.4) Total Bilirubin 0.4 mg/dL (0.2-1.0) Aspartate Amino Transf (AST/SGOT) 26 U/L (15-37) Alanine Aminotransferase (ALT/SGPT) 32 U/L (16-63) Alkaline Phosphatase 71 U/L (46-116) Troponin I Quantitative < 0.017 ng/mL (0.000-0.055) < 0.017 ng/mL (0.000-0.055) < 0.017 ng/mL (0.000-0.055) SX-Fhf-G-Type Natriuretic Peptide 1097 pg/mL (0-124) Total Protein 7.7 g/dL (6.4-8.2) Albumin 3.6 g/dL (3.4-5.0) Albumin/Globulin Ratio 0.9 (1.0-1.7) Triglycerides Level 258 mg/dL (0-150) Cholesterol Level 121 mg/dL (0-200) LDL Cholesterol, Calculated 42 mg/dL (0-100) VLDL Cholesterol, Calculated 52 mg/dL (0-40) Non-HDL Cholesterol Calculated 94 mg/dL (0-129) HDL Cholesterol 27 mg/dL (40-60) Cholesterol/HDL Ratio 4.5 Lipase 235 U/L (73-393) Thyroid Stimulating Hormone (TSH) 1.614 uIU/mL (0.358-3.74) Glucose (Fingerstick) 112 mg/dL (70-99) Test 08/07/19 20:59 08/08/19 08:18 Glucose (Fingerstick) 130 mg/dL (70-99) 134 mg/dL (70-99) Laboratory Tests Test 08/07/19 11:31 08/07/19 16:05 08/07/19 16:47 08/07/19 18:28 White Blood Count 7.9 x10^3/uL (4.0-11.0) Red Blood Count 4.81 x10^6/uL (4.30-5.70) Hemoglobin 14.7 g/dL (13.0-17.5) Hematocrit 44.0 % (39.0-53.0) Mean Corpuscular Volume 92 fL (79-100) Mean Corpuscular Hemoglobin 31 pg (25-35) Mean Corpuscular Hemoglobin Concent 34 g/dL (31-37) Red Cell Distribution Width 14.6 % (11.5-14.5) Platelet Count 146 x10^3/uL (140-400) Neutrophils (%) (Auto) 67 % (31-73) Lymphocytes (%) (Auto) 20 % (24-48) Monocytes (%) (Auto) 10 % (0-9) Eosinophils (%) (Auto) 2 % (0-3) Basophils (%) (Auto) 1 % (0-3) Neutrophils # (Auto) 5.3 x10^3/uL (1.8-7.7) Lymphocytes # (Auto) 1.6 x10^3/uL (1.0-4.8) Monocytes # (Auto) 0.8 x10^3/uL (0.0-1.1) Eosinophils # (Auto) 0.1 x10^3/uL (0.0-0.7) Basophils # (Auto) 0.0 x10^3/uL (0.0-0.2) Sodium Level 143 mmol/L (136-145) Potassium Level 4.3 mmol/L (3.5-5.1) Chloride Level 106 mmol/L (98-107) Carbon Dioxide Level 31 mmol/L (21-32) Anion Gap 6 (6-14) Blood Urea Nitrogen 22 mg/dL (8-26) Creatinine 1.3 mg/dL (0.7-1.3) Estimated GFR (Cockcroft-Gault) 55.1 BUN/Creatinine Ratio 17 (6-20) Glucose Level 139 mg/dL (70-99) Calcium Level 9.0 mg/dL (8.5-10.1) Magnesium Level 1.9 mg/dL (1.8-2.4) Total Bilirubin 0.4 mg/dL (0.2-1.0) Aspartate Amino Transf (AST/SGOT) 26 U/L (15-37) Alanine Aminotransferase (ALT/SGPT) 32 U/L (16-63) Alkaline Phosphatase 71 U/L (46-116) Troponin I Quantitative < 0.017 ng/mL (0.000-0.055) < 0.017 ng/mL (0.000-0.055) < 0.017 ng/mL (0.000-0.055) RF-Qsp-J-Type Natriuretic Peptide 1097 pg/mL (0-124) Total Protein 7.7 g/dL (6.4-8.2) Albumin 3.6 g/dL (3.4-5.0) Albumin/Globulin Ratio 0.9 (1.0-1.7) Triglycerides Level 258 mg/dL (0-150) Cholesterol Level 121 mg/dL (0-200) LDL Cholesterol, Calculated 42 mg/dL (0-100) VLDL Cholesterol, Calculated 52 mg/dL (0-40) Non-HDL Cholesterol Calculated 94 mg/dL (0-129) HDL Cholesterol 27 mg/dL (40-60) Cholesterol/HDL Ratio 4.5 Lipase 235 U/L (73-393) Thyroid Stimulating Hormone (TSH) 1.614 uIU/mL (0.358-3.74) Glucose (Fingerstick) 112 mg/dL (70-99) Test 08/07/19 20:59 08/08/19 08:18 Glucose (Fingerstick) 130 mg/dL (70-99) 134 mg/dL (70-99) Images Images Chest x-ray with no acute process. Assessment/Plan Assessment/Plan 1. Chest pain. Patient's initial troponin has been normal. He has no acute ischemic EKG changes. However he has a history of coronary disease on previous catheterization as above. He has multiple risk factors and a reasonable history for possible progression of his coronary disease. We discussed various options. Eliquis is on hold. Risks and benefits of a cath with possible intervention were discussed with the patient and he has agreed to proceed. 2. Hypertension. Under better control. Continue present treatment. 3. Atrial fibrillation. Somewhat decreased heart rate overnight and his beta meka has been held. Additionally anticoagulation in the elbow course has been hold held overnight. Resume later tonight or tomorrow. 3. Chronic kidney disease. Creatinine stable at 1.3. We'll treat with IV fluid. 5. COPD. Mild shortness of breath. Continue baseline medications. 6. Obesity and sleep apnea. 7. Borderline diabetes. Thank you for allowing us to participate in the care of your patient. BELLA HAYS MD Aug 08, 2019 11:09
--- NOTE | 2019-08-08 11:58 | NUR ---
SS following for discharge planning. SS reviewed pt chart. Pt is from home and is currently requiring oxygen. SS will continue to follow for discharge planning.
[2019-08-08] MEDS ORDERED: IODIXANOL 320 MG/ML 100 ML VIAL. ONE (14:54)
[2019-08-08] MEDS ORDERED: LIDOCAINE 1% PF 2 ML VIAL. ONE (14:54)
[2019-08-08 15:28] LABS: PROTHROMBIN TIME PATIENT 15.2 SEC (11.7-14.0)
[2019-08-08] MEDS ORDERED: fentaNYL PF VIAL 100 MCG/2 ML VIAL ONE (15:32)
[2019-08-08] MEDS ORDERED: NITROGLYCERIN 200 MCG/2 ML SYRINGE FOR CATH/VASC LAB. ONE ×2 (15:33→16:02)
[2019-08-08] MEDS ORDERED: MIDAZOLAM HCL/PF 2 MG/2 ML VIAL. ONE (15:33)
[2019-08-08] MEDS ORDERED: HEPARIN for IV BOLUS 10,000 UNIT/10 ML VIAL. ONE (15:33)
[2019-08-08] MEDS ORDERED: VERAPAMIL 5 MG/2 ML VIAL. ONE (15:33)
[2019-08-08] MEDS ORDERED: NITROGLYCERIN 200 MCG/2 ML SYRINGE FOR CATH/VASC LAB. IART ONE (16:15)
[2019-08-08] MEDS ORDERED: LIDOCAINE 1% PF 2 ML VIAL. INJ ONE (16:15)
[2019-08-08] MEDS ORDERED: IODIXANOL 320 MG/ML 100 ML VIAL. IART ONE (16:15)
[2019-08-08] MEDS ORDERED: VERAPAMIL 5 MG/2 ML VIAL. IART ONE (16:15)
[2019-08-08] MEDS ORDERED: fentaNYL PF VIAL 100 MCG/2 ML VIAL IV ONE (16:15)
[2019-08-08] MEDS ORDERED: NITROGLYCERIN 200 MCG/2 ML SYRINGE FOR CATH/VASC LAB. ICAR ONE (16:15)
[2019-08-08] MEDS ORDERED: MIDAZOLAM HCL/PF 2 MG/2 ML VIAL. IV ONE (16:15)
[2019-08-08] MEDS ORDERED: HEPARIN for IV BOLUS 10,000 UNIT/10 ML VIAL. IART ONE (16:15)
--- NOTE | 2019-08-08 16:49 | CARD ---
MR#: [id number] Date of Study: 08/08/2019 Ordering Physician: BELLA HAYS, Referring Physician: BELLA HAYS, Tech: SAE CHEN RT APPROVED REPORT Technologist: SAE CHEN RT Nurse: Morena Lamas R.N. Procedure(s) performed: FLOURO TIME 3.9 MINUTES DOSE: 70.9 Gycm2 CONTRAST 174 CC'S MODERATE SEDATION 25 MINUTES C, Coronary angiography HISTORY : The patient is a 69 year-old male with a history of . INDICATION The indication(s) include : unstable angina . CS Clinical Frailty Scale [facility] Clinical Frailty Scale: Moderately Frail Heart Failure Heart Failure: Yes If Yes, Newly Diagnosed: No If Yes, HF Type: Diastolic If Yes, NYHA Class: Class II PROCEDURE NARRATIVE INFORMED CONSENT: After explaining the risks and benefits of the procedure and alternatives, informed consent was obtained. The patient was brought electively to the cardiac catheterization lab. A timeout was performed confi rming the patient's name, date of , procedure, and site of procedure. All necessary personnel w ere wearing the appropriate protective equipment and radiation monitor devices. (See nursing notes for medications administered). ACCESS: The right wrist was sterilely prepped and draped in the usual fashion. The right wrist was infiltrat ed with 1 mL of 2% lidocaine for subcutaneous anesthesia. A 6 [place] Terumo glide sheath was inserte d into the right radial artery without difficulty. CORONARY ANGIOGRAPHY: Right and left coronary angiography was performed using a 6Fr TIG 4.0 catheter and a JL 3.5 catheter . Left ventricular end diastolic pressure was obtained with a pigtail catheter and pullback was perf ormed after left ventriculography. All catheter exchanges and advancements were performed over a ashley dewire. CLOSURE: At case completion the right radial sheath was removed and a Terumo radial band was applied with 13 m l of air. COMPLICATIONS: The patient tolerated the procedure well and there were no immediate complications. FINDINGS: HEMODYNAMICS: AO: 128/78 LEFT VENTRICULOGRAM: Deferred. CORONARY ANGIOGRAPHY: LM is a large caliber vessel with normal angiographic appearance. LAD is a large caliber vessel with mid to distal rapid tapering without focal disease. LCx is a moderate caliber non-dominant vessel with normal angiographic appearance. OM1 is a moderate caliber vessel with normal angiographic appearance. RCA is a large caliber dominant vessel with normal angiographic appearance. RPDA and RPL are moderate caliber vessels with normal angiographic appearance. Conclusion 1. No significant coronary artery disease Recommendations Aggressive Medical Therapy Signed by : Jessee Chance, Electronically Approved : 08/08/2019 16:49:13
[2019-08-08] MEDS: OMEGA-3 FATTY ACIDS/FISH OIL 1,000 MG CAPSULE. PO SCH (18:13)
[2019-08-08] MEDS: POTASSIUM CHLORIDE 10 MEQ TABLET.ER. PO SCH (18:13)
[2019-08-08] MEDS: CHOLECALCIFEROL (VITAMIN D3) 5,000 UNIT CAPSULE PO SCH (18:13)
[2019-08-08] MEDS: CYANOCOBALAMIN (VITAMIN B-12) 1,000 MCG TABLET. PO SCH (18:14)
[2019-08-08] MEDS: MULTIVITAMIN with MINERAL TABLET. PO SCH (18:14)
[2019-08-08] MEDS: CITALOPRAM 20 MG TABLET. PO SCH (18:14)
--- NOTE | 2019-08-08 19:49 | NUR ---
FACULTY CO-SIGN I have reviewed the documentation by doctor of nursing practice: [employer] student.
[2019-08-08] MEDS: APIXABAN 5 MG TABLET. PO SCH (20:58)
[2019-08-08] MEDS: ATORVASTATIN CALCIUM 10 MG TABLET. PO SCH (20:58)
[2019-08-08 23:07] LABS: HEMOGLOBIN A1C 5.9 % (4.8-5.6)
[2019-08-09 03:45] VITALS: BP 168/81
[2019-08-09] MEDS: IV NORMAL SALINE 1000ML BAG 1,000 ML IV SCH (04:09)
[2019-08-09 05:17] LABS: CALCIUM 8.7 mg/dL (8.5-10.1); CREATININE 1.1 mg/dL (0.7-1.3); GFR 66.8; POTASSIUM 3.7 mmol/L (3.5-5.1)
[2019-08-09 07:00] VITALS: BP 161/85
[2019-08-09] MEDS ORDERED: ANTI-COAG MONITOR BY PHARMACY. MC PRN (07:30)
[2019-08-09] MEDS ORDERED: ATEN25TA PO (08:00)
[2019-08-09] MEDS ORDERED: ATENOLOL 25 MG TABLET. PO SCH (09:00)
[2019-08-09] MEDS: CYANOCOBALAMIN (VITAMIN B-12) 1,000 MCG TABLET. PO SCH (09:02)
[2019-08-09] MEDS: amLODIPine BESYLATE 10 MG TABLET PO SCH (09:04)
[2019-08-09] MEDS: CHOLECALCIFEROL (VITAMIN D3) 5,000 UNIT CAPSULE PO SCH (09:05)
[2019-08-09] MEDS: CITALOPRAM 20 MG TABLET. PO SCH (09:05)
[2019-08-09] MEDS: APIXABAN 5 MG TABLET. PO SCH (09:06)
[2019-08-09] MEDS: OMEGA-3 FATTY ACIDS/FISH OIL 1,000 MG CAPSULE. PO SCH (09:06)
[2019-08-09] MEDS: POTASSIUM CHLORIDE 10 MEQ TABLET.ER. PO SCH (09:06)
[2019-08-09] MEDS: PANTOPRAZOLE 40 MG TABLET.DR. PO SCH (09:06)
[2019-08-09 09:07] VITALS: BP 161/85
[2019-08-09] MEDS: LISINOPRIL 20 MG TABLET PO SCH (09:07)
[2019-08-09] MEDS: ASPIRIN ENTERIC COATED 81 MG TABLET.DR. PO SCH (09:07)
[2019-08-09] MEDS: FUROSEMIDE 80 MG TABLET. PO SCH (09:07)
[2019-08-09] MEDS: MULTIVITAMIN with MINERAL TABLET. PO SCH (09:08)
[2019-08-09] MEDS: TAMSULOSIN 0.4 MG CAP.ER.24H. PO SCH (09:08)
--- NOTE | 2019-08-09 09:18 | PDOC3 ---
Discharge Summary Date of Admission: Aug 07, 2019 Date of Discharge: Aug 09, 2019 Follow-Up: Other ([address] Whyte or myself) Admitting Diagnosis comment: Chest pain FINAL DIAGNOSIS Problems Medical Problems: (1) Chest pain Status: Acute Brief Hospital Course Mr. Espinal is a 69 year old male with PMH of hypertension, type 2 diabetes, chronic kidney disease, depression, A. fib, BPH, COPD, hyperlipidemia, sleep apnea, who presented to the emergency room for substernal chest pain. He stated that pain started in mid morning on day of admission. He described pain as chest pressure and achiness, waxing and waning. Pain was associated with shortness of breath. Pain not worse with respirations. Denied fevers, chills, cough, nausea, vomiting, or diaphoresis. He had a similar episode about a week ago that seemed to resolve with belching. A cardiac cath in 2013 was essential normal. A nuclear stress test in 2016 showed no ischemic changes but did show concerns for possible multivessel disease. Echo 03/2019 was normal. Labs and EKGs in ED were unremarkable. CXR showed mild cardiomegaly. Cardiology was consulted and a cath showed no significant CAD. His heart rate was bradycardic, so his atenolol was decreased from 50mg daily to 25mg daily. Other home medications were unchanged. He will follow up as directed with Cardiology and with Dr. Whyte or myself in the next week in clinic. CONDITION AT DISCHARGE: Improved, Stable Discharge Medications Active Ondansetron Odt (Ondansetron) 4 Mg Tab.rapdis 1 Tab PO PRN Q6-8HRS PRN Reported Acetaminophen 500 Mg Tablet 1 Tab PO PRN Q6HRS PRN 15 Days Eliquis (Apixaban) 5 Mg Tablet 5 Mg PO BID Escitalopram Oxalate 20 Mg Tablet 20 Mg PO DAILY Finasteride 1 Mg Tablet 1 Tab PO DAILY 30 Days Flomax (Tamsulosin Hcl) 0.4 Mg Cap.er.24h 2 Cap PO DAILY Metformin Hcl 500 Mg Tablet 500 Mg PO DAILY Aspirin Ec (Aspirin) 81 Mg Tablet.dr 1 Tab PO DAILY Potassium Chloride 10 Meq Tab.er.prt 20 Meq PO DAILY Lovastatin 40 Mg Tablet 40 Mg PO HS Furosemide 80 Mg Tablet 80 Mg PO DAILY Lisinopril 40 Mg Tablet 40 Mg PO DAILY Omeprazole 40 Mg Capsule.dr 40 Mg PO DAILY Amlodipine Besylate 10 Mg Tablet 10 Mg PO DAILY B-12 (Cyanocobalamin (Vitamin B-12)) 500 Mcg Tablet 2,500 Mcg PO DAILY Hydralazine Hcl 50 Mg Tablet 50 Mg PO TID Vitamin D (Cholecalciferol (Vitamin D3)) 5,000 Unit Tablet 5,000 Unit PO BID Atenolol 25mg daily Multi-Vitamin Daily (Multivitamin) 1 Each Tablet 1 Each PO DAILY Fish Oil ([place]-3 Fatty Acids) 300 Mg Capsule 360 Mg PO DAILY Vital Signs Vital Signs Date Time Temp Pulse Resp B/P (MAP) Pulse Ox O2 Delivery O2 Flow Rate FiO2 08/09/19 09:07 76 161/85 08/09/19 03:45 97.7 20 93 BiPAP/CPAP 97.7 08/08/19 20:00 2.0 Allergies Allergies Coded Allergies Type Severity Reaction Last Updated Verified No Known Drug Allergies 11/07/15 No Disposition/Orders: D/C to Home ALISHA GLEZ MD Aug 09, 2019 09:18
--- NOTE | 2019-08-09 12:26 | PDOC ---
CARDIO Progress Notes Date and Time Date of Service 08/09/19 Time of Evaluation 1215 Subjective Subjective: No Chest Pain, No shortness of breath, No Palpitations Vitals Vitals Vital Signs Date Time Temp Pulse Resp B/P (MAP) Pulse Ox O2 Delivery O2 Flow Rate FiO2 08/09/19 09:07 76 161/85 08/09/19 08:00 Room Air 08/09/19 07:00 96.6 22 94 96.6 08/08/19 20:00 2.0 Weight Weight [ ] Input and Output Intake and Output Intake and Output 08/09/19 07:00 Intake Total 0 ml Output Total 1775 ml Balance -1775 ml Intake Oral 0 ml Output Urine Total 1775 ml Laboratory Labs Laboratory Tests Test 08/08/19 12:17 08/08/19 15:00 08/08/19 17:29 08/08/19 21:09 Glucose (Fingerstick) 122 mg/dL (70-99) 99 mg/dL (70-99) 138 mg/dL (70-99) Prothrombin Time 15.2 SEC (11.7-14.0) Prothromb Time International Ratio 1.2 (0.8-1.1) Test 08/09/19 04:20 08/09/19 08:14 Sodium Level 143 mmol/L (136-145) Potassium Level 3.7 mmol/L (3.5-5.1) Chloride Level 107 mmol/L (98-107) Carbon Dioxide Level 28 mmol/L (21-32) Anion Gap 8 (6-14) Blood Urea Nitrogen 14 mg/dL (8-26) Creatinine 1.1 mg/dL (0.7-1.3) Estimated GFR (Cockcroft-Gault) 66.8 Glucose Level 105 mg/dL (70-99) Calcium Level 8.7 mg/dL (8.5-10.1) Glucose (Fingerstick) 111 mg/dL (70-99) Physical Exam HEENT: Neck Supple W Full Motion Chest: Symmetric LUNGS: Clear to Auscultation Heart: S1S2, irregularly irregular (HR 55-60) Abdomen: Soft N/T Extremities: No Edema, Other (right radial arteriotomy site soft clean and dry. No hematoma present. Bilateral neurovascular status intact) Neurology: alert, oriented, follow commands Assessment Assessment 1. Chest pain, mixed features; LHC did not show any significant coronary artery disease 2. Hypertension; mildly elevated 3. AFIB; persistent. Bradycardia overnight with HR in the mid to upper 30's. On Eliquis for stroke prophylaxis. 4. CKD; Cr stable. 5. Diabetes, II 6. Obesity and sleep apnea. Recommendations Discontinue BB given significant bradycardia Outpatient event monitor has arranged to r/o tachy/saul syndrome Continue Eliquis for stroke prophylaxis Follow up with Dr. Orozco 10/06/19 at 10:30am. SARAH MEDINA APRN Aug 09, 2019 12:26
--- NOTE | 2019-08-09 13:24 | NUR ---
Discharge Note: RITU BRIAN Discharge instructions and discharge home medications reviewed with Patient and a copy given. All questions have been answered and understanding verbalized. The following instructions and handouts were given: discharge instructions along with follow up appts Discontinued lines and drains: PIV discontinued with no complications. Patient discharged to home with all belongings with them via personal car
[2019-08-10] MEDS ORDERED: metFORMIN 500 MG TABLET PO SCH (17:00)
== END 2019-08-09 13:30 | disposition home or self-care (01) ==
LOC: ER 11:23 → 2 SOUTH 12:50
PROVIDERS: ADMIT Family Medicine; ATTEND Family Medicine
DX: R07.89 Other chest pain (principal); I13.0 Hypertensive heart and chronic kidney disease with heart failure and stage 1 through stage 4 chronic kidney disease, or unspecified chronic kidney disease; I50.9 Heart failure, unspecified; N18.9 Chronic kidney disease, unspecified; E11.22 Type 2 diabetes mellitus with diabetic chronic kidney disease; I48.91 Unspecified atrial fibrillation; J44.9 Chronic obstructive pulmonary disease, unspecified; G47.30 Sleep apnea, unspecified; E78.5 Hyperlipidemia, unspecified; N40.0 Benign prostatic hyperplasia without lower urinary tract symptoms; F32.9 Major depressive disorder, single episode, unspecified; E66.9 Obesity, unspecified; Z98.61 Coronary angioplasty status; Z90.49 Acquired absence of other specified parts of digestive tract; Z68.43 Body mass index [BMI] 50.0-59.9, adult
CPT/HCPCS: 36415; 71045; 80048; 80053; 80061; 82962; 83036; 83690; 83735; 83880; 84443; 84484; 85025; 85610; 93005; 93454; 96374; 96375; 99285; C1769; C1892; G0378; J1644; J2250; J3010; J3490; Q9967; 99152; 99153; G0379

== ENCOUNTER → 2020-01-25 | Outpatient (CLI) | payer MEDICARE ==
[~2020-01-25] MED LIST changes: +ACET500T68 PO; +APIX5TAB PO; +ASPI-886 PO; +ATEN25TA PO; +ESCITALOPRAM OX20 MG PO; +FINA1TAB3 PO; +METF-658 PO; -METF500T11 PO; +TAMS0.4C97 PO
--- NOTE | 2020-01-25 15:11 | CARD ---
MR#: [id number] Date of Study: 01/25/2020 Ordering Physician: BELLA HAYS, Referring Physician: BELLA HAYS, Tech: Marilyn Iyer APPROVED REPORT EXAM: Two-dimensional and M-mode echocardiogram with Doppler and color Doppler. Other Information Quality : FairHR: 86bpm Technically limited study due to body habitus, obesity INDICATION Cardiac Disease: CAD RISK FACTORS Hypertension Hyperlipidemia Diabetes 2D DIMENSIONS RVDd4.1 (2.9-3.5cm)Left Atrium(2D)5.0 (1.6-4.0cm) IVSd1.4 (0.7-1.1cm)Aortic Root(2D)3.2 (2.0-3.7cm) LVDd5.8 (3.9-5.9cm)LVOT Diameter2.2 (1.8-2.4cm) PWd1.3 (0.7-1.1cm)LVDs3.5 (2.5-4.0cm) FS (%) 39.4 %SV113.7 ml LVEF(%)69.1 (>50%) Aortic Valve AoV Peak Angelo.136.1cm/sAoV VTI31.1cm AO Peak GR.7.4mmHgLVOT VTI 21.02cm AO Mean GR.6mmHg Mitral Valve MV E Ujtygnfr330.4cm/sMV E Peak Gr.4mmHg MV DECEL [id number] E Mean Gr.2mmHg TDI Lateral E' P. V5.86cm/sMedial E' P. V8.75cm/s E/Lateral E'19.2E/Medial E'12.8 Tricuspid Valve TR P. [id number]/sRAP [id number] TR Peak Gr.08npZtQGUM03zfFn LEFT VENTRICLE The left ventricle is normal size. There is mild to moderate concentric left ventricular hypertrophy. The left ventricular systolic function is normal. The ejection fraction is 55-60%. There is normal L V segmental wall motion. Diastology indeterminate due to atrial fibrillation. RIGHT VENTRICLE The right ventricle is normal size. There is normal right ventricular wall thickness. The right ventr icular systolic function is normal. ATRIA The left atrium is mildly dilated. The right atrium is moderately dilated. The interatrial septum is intact with no evidence for an atrial septal defect or patent foramen ovale as noted on 2-D or Dopple r imaging. AORTIC VALVE The aortic valve is thickened but opens well. Doppler and Color Flow revealed no significant aortic r egurgitation. There is no significant aortic valvular stenosis. Calculated aortic valve area is 2.75 cm2 with maximum pressure gradient of 10 mmHg and mean pressure gradient of 6 mmHg. MITRAL VALVE The mitral valve is normal in structure and function. There is no evidence of mitral valve prolapse. There is no mitral valve stenosis. Doppler and Color-flow revealed trace mitral regurgitation. TRICUSPID VALVE The tricuspid valve is normal in structure and function. Doppler and Color Flow revealed trace tricus pid regurgitationn with an estimated PAP of 31 mmHg. There is no tricuspid valve stenosis. PULMONIC VALVE The pulmonic valve is not well visualized. Doppler and Color Flow revealed no pulmonic valvular regur gitation. GREAT VESSELS The aortic root is normal in size. The IVC is normal in size and collapses >50% with inspiration. PERICARDIAL EFFUSION There is no evidence of significant pericardial effusion. Critical Notification Critical Value: No <Conclusion> The left ventricular systolic function is normal. The ejection fraction is 55-60%. There is normal LV segmental wall motion. Trace mitral regurgitation. Trace tricuspid regurgitationn with an estimated PAP of 31 mmHg. There is no evidence of significant pericardial effusion. Signed by : Len Mccall, Electronically Approved : 01/25/2020 15:11:08
== END | disposition home or self-care (01) ==
LOC: ECHO 10:40
PROVIDERS: ATTEND Internal Medicine Cardiovascular Disease
DX: I11.9 Hypertensive heart disease without heart failure (principal); I25.10 Atherosclerotic heart disease of native coronary artery without angina pectoris; E78.5 Hyperlipidemia, unspecified; E11.9 Type 2 diabetes mellitus without complications
CPT/HCPCS: 93306

== ENCOUNTER 2021-03-29 11:02 | Day surgery (SDC) | payer MEDICARE ==
[~2021-03-29] VITALS: Ht 177.8 cm; Wt 16.0 kg
[~2021-03-29 11:02] MED LIST changes: +AMLO-187 PO; -AMLO10TA8 PO; -CLIN150C14 PO; +CLIN150C16 PO; +HYDROmorphone 2 MG/ML VIAL IVP PRN; -ISOS60TA2 PO; +ISOS60TA55 PO; +IV RINGERS,LACTATED 1000ML 1,000 ML IV SCH; +MORPHINE SULFATE 2 MG/ML INJ. IVP PRN; -OMEP40CA45 PO; +OMEP40CA7 PO; +PROCHLORPERAZINE 10 MG/2 ML VIAL. IVP PRN; +SERT-268 PO; -SERT100T8 PO; +fentaNYL PF VIAL 100 MCG/2 ML VIAL IVP PRN
--- NOTE | 2021-03-29 11:42 | EKG ---
[facility] [address] [place] [address] Test Date: 2021-03-29 Test Time: 11:42:54 Pat Name: RITU BRIAN Department: Room: Gender: M Wire Bender: CIRO : 1950 Requested By: BELLA BO Order Number: [id number] Reading MD: Bella Bo Measurements Intervals [place] Rate: 82 P: TX: QRS: -90 QRSD: 94 T: -4 QT: 380 QTc: 447 Interpretive Statements ATRIAL FIBRILLATION QRS(T) CONTOUR ABNORMALITY CONSISTENT WITH POSSIBLE INFERIOR INFARCT PROBABLY OLD Electronically Signed On 04-08-2021 11:03:10 TICK INSPECTOR by Bella Bo
[2021-03-29 11:49] LABS: CALCIUM 8.7 mg/dL (8.5-10.1); CREATININE 1.6 mg/dL (0.7-1.3); GFR 43.1; POTASSIUM 4.5 mmol/L (3.5-5.1)
[2021-03-29 11:51] LABS: HEMATOCRIT 42.3 % (39.0-53.0); HEMOGLOBIN 14.2 g/dL (13.0-17.5); RED BLOOD COUNT 4.46 x10^6/uL (4.30-5.70); WHITE BLOOD COUNT 6.9 x10^3/uL (4.0-11.0)
[2021-03-29 11:58] LABS: PROTHROMBIN TIME PATIENT 17.2 SEC (11.7-14.0)
[2021-03-29] MEDS ORDERED: FLEC100T PO (12:00)
[2021-03-29] MEDS ORDERED: LIDOCAINE 2% PF 5 ML VIAL. ONE ×2 (12:15→12:18)
[2021-03-29] MEDS ORDERED: PROPOFOL 10 MG/ML (20ML) VIAL. IV ONE ×3 (12:15→12:18)
[2021-03-29] MEDS ORDERED: INSULIN LISPRO 100 UNIT/ML 3ML VIAL for OP,RR ONLY. SQ PRN (12:15)
[2021-03-29] MEDS ORDERED: BENZOCAINE ONE 20% MUCOSAL SPRAY. MM (12:15)
[2021-03-29] MEDS ORDERED: LIDOCAINE 2% JELLY 6ML IN APPLICATOR. MM ONE (12:15)
[2021-03-29] MEDS ORDERED: LIDOCAINE 2% VISCOUS 15 ML SOLUTION. SWSW ONE (12:15)
[2021-03-29] MEDS ORDERED: GLYCOPYRROLATE 1 MG/5 ML VIAL. ONE (12:19)
[2021-03-29] MEDS ORDERED: PHENYLEPHRINE in 0.9% NACL PF 1 MG/10 ML SYRINGE. IV ONE (12:19)
[2021-03-29] MEDS ORDERED: PROPOFOL 50 ML IV ONE (12:20)
[2021-03-29] MEDS ORDERED: LIDOCAINE 2% VISCOUS 15 ML SOLUTION. ONE (12:29)
[2021-03-29] MEDS ORDERED: LIDOCAINE 2% TOPICAL JELLY 30GM TUBE. TP ONE (12:30)
[2021-03-29 13:41] VITALS: BP 116/61
--- NOTE | 2021-03-30 11:14 | PDOC4 ---
Procedure Note: Procedure Note: The patient is a 71-year-old male with a history of atrial fibrillation. He has been anticoagulated for greater than 6 weeks and was started on antiarrhythmic medication by the EP service 3 weeks ago. He was scheduled for attempted cardioversion of atrial fibrillation. Risks and benefits were discussed with the patient. He has agreed to proceed. The patient was reviewed by the anesthesiology service and found to be an acceptable candidate. He was prepared in the usual manner with standard positioning of the leads. He was sedated by the anesthesiology service to an appropriate level of consciousness. Atrial fibrillation was confirmed. He was cardioverted with 200 J of synchronized energy to a normal sinus rhythm. He remained in a normal sinus rhythm. He awoke normally as per protocols. Conclusion. Successful cardioversion of atrial fibrillation to sinus rhythm. BELLA HAYS MD Mar 30, 2021 11:14
--- NOTE | 2021-03-31 14:08 | CARD ---
MR#: [id number] Date of Study: 03/29/2021 Ordering Physician: BELLA BO, Referring Physician: Shana FLORES: Dajuan Parada [facility] APPROVED REPORT EXAM: Transesophageal echocardiogram with color flow Doppler and Synchronized Cardioversion. INDICATION Atrial Fibrillation Atrial fibrillaton with cardioversion RISK FACTORS Obesity Reason For Test : Rule out cardiac source of emboli. PROCEDURE After obtaining informed consent, patient underwent transesophageal echo in the PACU. Type of Sedation : Conscious Sedation Sedation was administered by Anesthesia department. Sedation was achieved with Propofol 220 intravenously. Transesophageal probe was inserted and advanced into esophagus by Bella Bo MD. Throughout the procedure, the blood pressure, pulse oximetry, cardiac rhythm, and rate were monitored . LEFT VENTRICLE The left ventricle is normal size. There is normal left ventricular wall thickness. The left ventricu lar systolic function is normal and the ejection fraction is within normal range. There is normal LV segmental wall motion. No left ventricle thrombus noted on this study. There is no ventricular septal defect visualized. There is no left ventricular aneurysm. There is no mass noted in the left ventric le. RIGHT VENTRICLE The right ventricle is normal size. There is normal right ventricular wall thickness. The right ventr icular systolic function is normal. ATRIA The left atrium is moderately dilated. The right atrium size is normal. The interatrial septum is int act with no evidence for an atrial septal defect or patent foramen ovale as noted on 2-D or Doppler i maging. There is no thrombus noted in the left atrial appendage. AORTIC VALVE The aortic valve is normal in structure and function. Doppler and Color Flow revealed no significant aortic regurgitation. There is no significant aortic valvular stenosis. There is no aortic valvular v egetation. MITRAL VALVE The mitral valve is normal in structure and function. There is no evidence of mitral valve prolapse. There is no mitral valve stenosis. Doppler and Color-flow revealed mild mitral regurgitation. TRICUSPID VALVE The tricuspid valve is normal in structure and function. Doppler and Color Flow revealed mild tricusp id regurgitation. There is no tricuspid valve prolapse or vegetation. There is no tricuspid valve fara nosis. PULMONIC VALVE The pulmonary valve is normal in structure and function. Doppler and Color Flow revealed no pulmonic valvular regurgitation. There is no pulmonic valvular stenosis. GREAT VESSELS The aortic root is normal in size. The ascending aorta is normal in size. The pulmonary artery is nor mal. The IVC is normal in size and collapses >50% with inspiration. Critical Notification Critical Value: No <Conclusion> The left ventricle is normal size. The left ventricular systolic function is normal and the ejection fraction is within normal range. There is normal LV segmental wall motion. The interatrial septum is intact with no evidence for an atrial septal defect or patent foramen ovale as noted on 2-D or Doppler imaging. There is no thrombus noted in the left atrial appendage. Doppler and Color Flow revealed no significant aortic regurgitation. There is no significant aortic valvular stenosis. Doppler and Color-flow revealed mild mitral regurgitation. Doppler and Color Flow revealed mild tricuspid regurgitation. Signed by : Bella Bo MD Electronically Approved : 03/31/2021 14:07:45
== END 2021-03-29 14:21 | disposition home or self-care (01) ==
LOC: SURG 11:02
PROVIDERS: ATTEND Internal Medicine Cardiovascular Disease
DX: I48.91 Unspecified atrial fibrillation (principal); I07.1 Rheumatic tricuspid insufficiency; I13.0 Hypertensive heart and chronic kidney disease with heart failure and stage 1 through stage 4 chronic kidney disease, or unspecified chronic kidney disease; I50.9 Heart failure, unspecified; E11.22 Type 2 diabetes mellitus with diabetic chronic kidney disease; N18.2 Chronic kidney disease, stage 2 (mild); E78.00 Pure hypercholesterolemia, unspecified; E66.9 Obesity, unspecified; K21.9 Gastro-esophageal reflux disease without esophagitis; M19.90 Unspecified osteoarthritis, unspecified site; F41.9 Anxiety disorder, unspecified; F32.9 Major depressive disorder, single episode, unspecified; J44.9 Chronic obstructive pulmonary disease, unspecified; Z79.82 Long term (current) use of aspirin; Z79.899 Other long term (current) drug therapy; Z98.890 Other specified postprocedural states
CPT/HCPCS: 36415; 80048; 85027; 85610; 92960; 93005; 93312; J2704; J3490; J2370

== ENCOUNTER 2021-04-24 18:13 | Inpatient (IN) | payer MEDICARE ==
[~2021-04-24] VITALS: Ht 177.8 cm; Wt 157.2 kg
[~2021-04-24 18:13] MED LIST changes: +FLEC100T PO; -HYDROmorphone 2 MG/ML VIAL IVP PRN; -IV RINGERS,LACTATED 1000ML 1,000 ML IV SCH; -MORPHINE SULFATE 2 MG/ML INJ. IVP PRN; -PROCHLORPERAZINE 10 MG/2 ML VIAL. IVP PRN; -fentaNYL PF VIAL 100 MCG/2 ML VIAL IVP PRN
--- NOTE | 2021-04-24 19:29 | PHYS DOC ---
Past Medical History Past Medical History: A-Fib, CHF, COPD, Diabetes-Type II, Hypertension Additional Past Medical Histor: CLEAR CARDIAC CATH IN PAST. CPAP Q hS. NO o2 DURING DAY. (EYAD ESTEBAN APRN) Past Surgical History: Cervical Fusion, TURP Additional Past Surgical Histo: Adenoids, Hernia, Carpal Tunnel (EYAD ESTEBAN APRN) Smoking Status: Never Smoker Alcohol Use: None Drug Use: None (EYAD ESTEBAN APRN) General Adult EDM: Chief Complaint: OTHER COMPLAINTS HPI: HPI: Patient is a 71-year-old male that presents today with abdominal pain starting this afternoon. Patient states he was helping someone move today and was using helen and he said the helen slipped from his hands and hit him in the abdomen and since that time he has had increased abdominal pain and nausea. Patient is on anticoagulation therapy for chronic A. fib, also has an extensive cardiac history. (EYAD ESTEBAN APRN) Review of Systems: Review of Systems: Constitutional: Denies fever or chills. [] Eyes: Denies change in visual acuity. [] HENT: Denies nasal congestion or sore throat. [] Respiratory: Denies cough or shortness of breath. [] Cardiovascular: Denies chest pain or edema. [] GI: Abdominal pain and nausea] : Denies dysuria. [] Musculoskeletal: Denies back pain or joint pain. [] Integument: Denies rash. [] Neurologic: Denies headache, focal weakness or sensory changes. [] Endocrine: Denies polyuria or polydipsia. [] Lymphatic: Denies swollen glands. [] Psychiatric: Denies depression or anxiety. [] (EYAD ESTEBAN TRANSPORTATION ENGINEER) Heart Score: C/O Chest Pain: N/A Risk Factors: Risk Factors: DM, Current or recent (<one month) smoker, HTN, HLP, family history of CAD, obesity. Risk Scores: Score 0 - 3: 2.5% MACE over next 6 weeks - Discharge Home Score 4 - 6: 20.3% MACE over next 6 weeks - Admit for Clinical Observation Score 7 - 10: 72.7% MACE over next 6 weeks - Early Invasive Strategies (EYAD ESTEBAN APRN) Allergies: Allergies: Allergies Coded Allergies Type Severity Reaction Last Updated Verified No Known Drug Allergies 03/29/21 No (EYAD ESTEBAN APRN) Physical Exam: PE: Constitutional: Morbidly obese male in moderate distress HENT: Normocephalic, atraumatic, bilateral external ears normal, oropharynx moist, no oral exudates, nose normal. [] Eyes: PERRLA, EOMI, conjunctiva normal, no discharge. [] Neck: Normal range of motion, no tenderness, supple, no stridor. [] Cardiovascular:Heart rate regular rhythm, no murmur [] Lungs & Thorax: Bilateral breath sounds clear to auscultation [] Abdomen: Palpation of the abdomen shows some tenderness in the lower abdomen below the umbilicus, hernia noted at the umbilicus patient has a very large pannus, no lacerations, abrasions, contusions,or ecchymosis is noted on the abdomen Skin: Warm, dry, no erythema, no rash. [] Back: No tenderness, no CVA tenderness. [] Extremities: No tenderness, no cyanosis, no clubbing, ROM intact, trace pedal edema noted 2+ posterior tibial pulses Neurologic: Alert and oriented X 3, normal motor function, normal sensory function, no focal deficits noted. [] Psychologic: Affect normal, judgement normal, mood normal. [] (EYAD ESTEBAN TRANSPORTATION ENGINEER) Current Patient Data: Labs: Laboratory Tests Test 04/24/21 20:08 White Blood Count 10.1 x10^3/uL Red Blood Count 4.38 x10^6/uL Hemoglobin 14.1 g/dL Hematocrit 41.5 % Mean Corpuscular Volume 95 fL Mean Corpuscular Hemoglobin 32 pg Mean Corpuscular Hemoglobin Concent 34 g/dL Red Cell Distribution Width 13.6 % Platelet Count 145 x10^3/uL Neutrophils (%) (Auto) 82 % Lymphocytes (%) (Auto) 10 % Monocytes (%) (Auto) 7 % Eosinophils (%) (Auto) 0 % Basophils (%) (Auto) 0 % Neutrophils # (Auto) 8.3 x10^3/uL Lymphocytes # (Auto) 1.0 x10^3/uL Monocytes # (Auto) 0.7 x10^3/uL Eosinophils # (Auto) 0.0 x10^3/uL Basophils # (Auto) 0.0 x10^3/uL Urine Color Yellow Urine Clarity Clear Urine pH 7.0 Urine Specific [place] 1.010 Urine Protein Negative mg/dL Urine Glucose (UA) Negative mg/dL Urine Ketones (Stick) Trace mg/dL Urine Blood Negative Urine Nitrite Negative Urine Bilirubin Negative Urine Urobilinogen Dipstick 1.0 mg/dL Urine Leukocyte Esterase Negative Urine RBC 1-2 /HPF Urine WBC 1-4 /HPF Urine Squamous Epithelial Cells Occ /LPF Urine Bacteria Few /HPF Urine Hyaline Casts Few /HPF Sodium Level 140 mmol/L Potassium Level 4.7 mmol/L Chloride Level 105 mmol/L Carbon Dioxide Level 22 mmol/L Anion Gap 13 Blood Urea Nitrogen 37 mg/dL Creatinine 2.2 mg/dL Estimated GFR (Cockcroft-Gault) 29.8 BUN/Creatinine Ratio 17 Glucose Level 143 mg/dL Calcium Level 9.4 mg/dL Total Bilirubin 0.4 mg/dL Aspartate Amino Transf (AST/SGOT) 37 U/L Alanine Aminotransferase (ALT/SGPT) 37 U/L Alkaline Phosphatase 64 U/L Total Protein 7.7 g/dL Albumin 3.8 g/dL Albumin/Globulin Ratio 1.0 Current Medications Medications (Trade) Dose Ordered Sig/Gina Route PRN Reason Start Time Stop Time Status Last Admin Dose Admin Fentanyl Citrate (Fentanyl 2ml Vial) 50 mcg 1X ONCE IVP 04/24/21 19:30 04/24/21 19:31 DC 04/24/21 20:07 Ondansetron HCl (Zofran) 4 mg 1X ONCE IVP 04/24/21 19:30 04/24/21 19:31 DC 04/24/21 20:06 Vital Signs: Vital Signs Date Time Temp Pulse Resp B/P (MAP) Pulse Ox O2 Delivery O2 Flow Rate FiO2 04/24/21 21:49 16 97 Room Air 04/24/21 20:07 16 99 Room Air 04/24/21 19:04 97.9 80 16 118/51 (73) 98 Room Air 97.9 Vital Signs Date Time Temp Pulse Resp B/P (MAP) Pulse Ox O2 Delivery O2 Flow Rate FiO2 04/24/21 19:04 97.9 80 16 118/51 (73) 98 Room Air 97.9 (EYAD ESTEBAN TRANSPORTATION ENGINEER) EKG: EKG: [] (EYAD ESTEBAN TRANSPORTATION ENGINEER) Radiology/Procedures: Radiology/Procedures: [REASON: trauma PROCEDURE: CT ABDOMEN PELVIS WO CONTRAST Exam: CT of abdomen and pelvis without contrast INDICATION: Trauma TECHNIQUE: Sequential axial images through the abdomen and pelvis obtained without IV contrast. Sagittal and coronal reformatted images were reconstructed from the axial data and reviewed. Exposure: One or more of the following in the visualized dose reduction techniqu es were utilized for this examination: 1. Automated exposure control 2. Adjustment of the MA and/or KV according to patient size 3. Use of iterative of reconstructive technique Comparisons: None FINDINGS: Heart size is normal. No pericardial effusion. Visualized lung bases are clear. No pleural effusion. Evaluation of solid organs is limited secondary to noncontrast technique. Liver, spleen, pancreas and adrenals are unremarkable. Gallstone noted in the gallbladder. Numerous cystic lesions at the kidneys bilaterally. No perinephric inflammation or hydronephrosis. No renal or ureteral calculi are identified. Bladder is partially distended and not well evaluated. Prostate is not enlarged. Moderate amount of stool is noted in the colon. There is a umbilical hernia which contains a short segment of small bowel. The more proximal small bowel is mildly distended. No free intra-abdominal air or fluid. Abdominal aorta has a normal course and caliber. No enlarged intra-abdominal lymph nodes are identified. No suspicious osseous lesions or acute fractures. IMPRESSION: 1. No sequela of acute traumatic injury identified within the abdomen or pelvis. 2. Umbilical hernia which contains a short segment of small bowel. There is distention of the more proximal small bowel which could relate to partial obstruction. Correlate with symptomatology. 3. Cholelithiasis 4. Numerous cysts in the kidneys which are incompletely characterized on noncontrast exam. Further evaluation with nonemergent/outpatient renal protocol CT or MRI is recommended. (EYAD ESTEBAN TRANSPORTATION ENGINEER) Course & Med Decision Making: Course & Med Decision Making Pertinent Labs and Imaging studies reviewed. (See chart for details) [2120 patient continues to have 9 out of 10 abdominal pain, patient does have some nausea associated with it he does say most of his pain is at the [facility] area where he has a hernia. We will contact Dr. Conley for consultation and contact Dr. Wiley for admission [address] Francisco regarding admitting patient for pain control and umbilical hernia for evaluation by Dr. Conley general surgery in the a.m. he is agreeable to that. We will keep patient n.p.o. at this time IV fluids to run at 100 an hour and fentanyl and Zofran for pain on the floor 2229 Dr. Conley at bedside to evaluate patient. Dr. Conley believes that taking the patient to the operating room tonight is the appropriate treatment Dr. Francisco notified. (EYAD ESTEBAN APRN) Course & Med Decision Making Patients Care and treatment plan provided by ER Nurse Practitioner. I was available for consult. Patient's chart reviewed. Personally evalauted patient. Larger hernia periumbilical. Attempted to manually reduce hernia--- unsuccessful. Patient to be admitted to hospitalist with general surgery consult. I did discuss patient with admitting physician. Dr Conley evaluated patient in the ER. Plans to take patient to OR. (MITCHEL DIAS DO) Dragon Disclaimer: Dragon Disclaimer: This electronic medical record was generated, in whole or in part, using a voice recognition dictation system. (EYAD ESTEBNA APRN) Departure Departure Impression: Primary Impression: Abdominal pain Qualified Codes: R10.33 - Periumbilical pain Additional Impression: Hernia, umbilical, with obstruction Disposition: ADMITTED INPATIENT Admitting Physician: Young Hernandez (EYAD ESTEBAN APRN) Condition: STABLE Referrals: RONI WILEY MD (PCP) EYAD ESTEBAN APRN Apr 24, 2021 19:29 MITCHEL DIAS DO Apr 24, 2021 22:35
[2021-04-24] MEDS ORDERED: ONDANSETRON PF 4 MG/2 ML VIAL. IVP ONE (19:30)
[2021-04-24] MEDS ORDERED: fentaNYL PF VIAL 100 MCG/2 ML VIAL IVP ONE ×2 (19:30→21:45)
[2021-04-24 20:19] LABS: BASO % 0 % (0-3); EOS % 0 % (0-3); HEMATOCRIT 41.5 % (39.0-53.0); HEMOGLOBIN 14.1 g/dL (13.0-17.5); LYMPH % 10 % (24-48); MEAN CORPUSCULAR HEMOGLOBIN 32 pg (25-35); MEAN CORPUSCULAR HGB CONC 34 g/dL (31-37); MEAN CORPUSCULAR VOLUME 95 fL (79-100); MONO # 0.7 x10^3/uL (0.0-1.1); MONO % 7 % (0-9); NEUT # 8.3 x10^3/uL (1.8-7.7); NEUT % 82 % (31-73); PLATELET COUNT 145 x10^3/uL (140-400); RED BLOOD COUNT 4.38 x10^6/uL (4.30-5.70); RED CELL DISTRIBUTION WIDTH 13.6 % (11.5-14.5); WHITE BLOOD COUNT 10.1 x10^3/uL (4.0-11.0)
[2021-04-24 20:27] LABS: CALCIUM 9.4 mg/dL (8.5-10.1); CREATININE 2.2 mg/dL (0.7-1.3); GFR 29.8; POTASSIUM 4.7 mmol/L (3.5-5.1)
[2021-04-24 20:32] LABS: BILIRUBIN,URINE NEGATIVE (NEG); CLARITY,URINE CLEAR; COLOR,URINE YELLOW; NITRITE,URINE NEGATIVE (NEG); PROTEIN,URINE NEGATIVE (NEG-TRACE)
[2021-04-24 20:33] LABS: ALBUMIN 3.8 g/dL (3.4-5.0); TOTAL BILIRUBIN 0.4 mg/dL (0.2-1.0); TOTAL PROTEIN 7.7 g/dL (6.4-8.2)
[2021-04-24 20:45] LABS: BACTERIA,URINE FEW /HPF (0-FEW); HYALINE CASTS, URINE FEW /HPF
--- NOTE | 2021-04-24 21:09 | RAD ---
Exam: CT of abdomen and pelvis without contrast INDICATION: Trauma TECHNIQUE: Sequential axial images through the abdomen and pelvis obtained without IV contrast. Sagit helga and coronal reformatted images were reconstructed from the axial data and reviewed. Exposure: One or more of the following in the visualized dose reduction techniques were utilized for this examination: 1. Automated exposure control 2. Adjustment of the MA and/or KV according to patient size 3. Use of iterative of reconstructive technique Comparisons: None FINDINGS: Heart size is normal. No pericardial effusion. Visualized lung bases are clear. No pleural effusion. Evaluation of solid organs is limited secondary to noncontrast technique. Liver, spleen, pancreas and adrenals are unremarkable. Gallstone noted in the gallbladder. Numerous cystic lesions at the kidneys bilaterally. No perinephric inflammation or hydronephrosis. No renal or ureteral calculi are identified. Bladder is partially distended and not well evaluated. Prostate is not enlarged. Moderate amount of stool is noted in the colon. There is a umbilical hernia which contains a short se gment of small bowel. The more proximal small bowel is mildly distended. No free intra-abdominal air or fluid. Abdominal aorta has a normal course and caliber. No enlarged intra-abdominal lymph nodes are identified. No suspicious osseous lesions or acute fractures. IMPRESSION: 1. No sequela of acute traumatic injury identified within the abdomen or pelvis. 2. Umbilical hernia which contains a short segment of small bowel. There is distention of the more p roximal small bowel which could relate to partial obstruction. Correlate with symptomatology. 3. Cholelithiasis 4. Numerous cysts in the kidneys which are incompletely characterized on noncontrast exam. Further e valuation with nonemergent/outpatient renal protocol CT or MRI is recommended. Electronically signed by: Loreto Roberto MD (04/24/2021 9:07 PM) [facility]
[2021-04-24] MEDS ORDERED: ONDANSETRON PF 4 MG/2 ML VIAL. IVP PRN (22:00)
[2021-04-24] MEDS ORDERED: IV NORMAL SALINE 1000ML BAG 1,000 ML IV ONE (22:00)
[2021-04-24] MEDS ORDERED: fentaNYL PF VIAL 100 MCG/2 ML VIAL IVP PRN (22:00)
--- NOTE | 2021-04-24 22:49 | PDOC2 ---
CONSULT Date of Consult Date of Consult DATE: 04/24/21 TIME: 22:40 Reason for Consult Reason for Consult: Abdominal pain with N/V Referring Physician Referring Physician: Pato Identification/Chief Complaint Chief Complaint Abdominal pain with N/V Source Source: Chart review, Patient History of Present Illness Reason for Visit: 71 yo male that was hit in the abdomen by a helen he was using to move items. Developed unrelenting pain at his ventral hernia. Pain became unbearable with nausea and vomiting. Past Medical History Cardiovascular: AFIB, CAD, HTN, Hyperlipidemia Pulmonary: COPD, Other CENTRAL NERVOUS SYSTEM: Carpal Tunnel Syndrome GI: No pertinent hx Heme/Onc: No pertinent hx Hepatobiliary: No pertinent hx Psych: No pertinent hx Rheumatologic: No pertinent hx Infectious disease: No pertinent hx ENT: No pertinent hx Renal/: Chronic renal insuff Endocrine: No pertinent hx, Other Dermatology: No pertinent hx Past Surgical History Past Surgical History: Tonsillectomy, Other Family History Family History: Coronary Artery Disease, Heart Disease, Hypertension Social History ALCOHOL: none Current Problem List Problem List Problems Medical Problems: (1) Abdominal pain Status: Acute (2) Hernia, umbilical, with obstruction Status: Acute Current Medications Current Medications Current Medications Fentanyl Citrate (Fentanyl 2ml Vial) 50 mcg 1X ONCE IVP Last administered on 04/24/21at 20:07; Start 04/24/21 at 19:30; Stop 04/24/21 at 19:31; Status DC Ondansetron HCl (Zofran) 4 mg 1X ONCE IVP Last administered on 04/24/21at 20:06; Start 04/24/21 at 19:30; Stop 04/24/21 at 19:31; Status DC Fentanyl Citrate (Fentanyl 2ml Vial) 50 mcg 1X ONCE IVP Last administered on 04/24/21at 21:49; Start 04/24/21 at 21:45; Stop 04/24/21 at 21:46; Status DC Ondansetron HCl (Zofran) 4 mg PRN Q8HRS PRN IVP NAUSEA/VOMITING; Start 04/24/21 at 22:00; Stop 04/25/21 at 21:59 Fentanyl Citrate (Fentanyl 2ml Vial) 50 mcg PRN Q1HR PRN IVP PAIN; Start 04/24/21 at 22:00; Stop 04/25/21 at 21:59 Sodium Chloride 1,000 ml @ 100 mls/hr 1X ONCE IV ; Start 04/24/21 at 22:00; Stop 04/25/21 at 07:59 Active Scripts Active Reported Flecainide Acetate 100 Mg Tablet 100 Mg PO BID Acetaminophen 500 Mg Tablet 1 Tab PO PRN Q6HRS PRN 15 Days Eliquis (Apixaban) 5 Mg Tablet 5 Mg PO BID Escitalopram Oxalate 20 Mg Tablet 20 Mg PO DAILY Finasteride 1 Mg Tablet 1 Tab PO DAILY 30 Days Flomax (Tamsulosin Hcl) 0.4 Mg Cap.er.24h 2 Cap PO DAILY Metformin Hcl 500 Mg Tablet 500 Mg PO DAILY Aspirin Ec (Aspirin) 81 Mg Tablet.dr 1 Tab PO DAILY Potassium Chloride 10 Meq Tab.er.prt 20 Meq PO DAILY Lovastatin 40 Mg Tablet 40 Mg PO HS Furosemide 80 Mg Tablet 80 Mg PO DAILY Lisinopril 40 Mg Tablet 40 Mg PO DAILY Omeprazole 40 Mg Capsule.dr 40 Mg PO DAILY Amlodipine Besylate 10 Mg Tablet 10 Mg PO DAILY B-12 (Cyanocobalamin (Vitamin B-12)) 500 Mcg Tablet 2,500 Mcg PO DAILY Hydralazine Hcl 50 Mg Tablet 50 Mg PO TID Vitamin D (Cholecalciferol (Vitamin D3)) 5,000 Unit Tablet 5,000 Unit PO DAILY Multi-Vitamin Daily (Multivitamin) 1 Each Tablet 1 Each PO DAILY Fish Oil ([place]-3 Fatty Acids) 300 Mg Capsule 360 Mg PO DAILY Allergies Allergies: Coded Allergies: No Known Drug Allergies (Unverified , 03/29/21) ROS Gastrointestinal: Yes Nausea, Yes Vomiting, Yes Abdominal Pain Physical Exam General: Alert, Oriented X3, Cooperative, moderate distress HEENT: Atraumatic, PERRLA, EOMI Lungs: Clear to auscultation, Normal air movement Heart: Regular rate, No murmurs Abdomen: Soft, Other (tender to palpation over hernia unable to reduce) Extremities: Other (edema with venous stasis changes) Skin: No significant lesion Neuro: Normal speech Psych/Mental Status: Mental status NL Vitals VITALS Vital Signs Date Time Temp Pulse Resp B/P (MAP) Pulse Ox O2 Delivery O2 Flow Rate FiO2 04/24/21 21:49 16 97 Room Air 04/24/21 19:04 97.9 80 118/51 (73) 97.9 Labs Labs Laboratory Tests Test 04/24/21 20:08 04/24/21 21:50 White Blood Count 10.1 x10^3/uL (4.0-11.0) Red Blood Count 4.38 x10^6/uL (4.30-5.70) Hemoglobin 14.1 g/dL (13.0-17.5) Hematocrit 41.5 % (39.0-53.0) Mean Corpuscular Volume 95 fL (79-100) Mean Corpuscular Hemoglobin 32 pg (25-35) Mean Corpuscular Hemoglobin Concent 34 g/dL (31-37) Red Cell Distribution Width 13.6 % (11.5-14.5) Platelet Count 145 x10^3/uL (140-400) Neutrophils (%) (Auto) 82 % (31-73) Lymphocytes (%) (Auto) 10 % (24-48) Monocytes (%) (Auto) 7 % (0-9) Eosinophils (%) (Auto) 0 % (0-3) Basophils (%) (Auto) 0 % (0-3) Neutrophils # (Auto) 8.3 x10^3/uL (1.8-7.7) Lymphocytes # (Auto) 1.0 x10^3/uL (1.0-4.8) Monocytes # (Auto) 0.7 x10^3/uL (0.0-1.1) Eosinophils # (Auto) 0.0 x10^3/uL (0.0-0.7) Basophils # (Auto) 0.0 x10^3/uL (0.0-0.2) Urine Color Yellow Urine Clarity Clear Urine pH 7.0 (<5.0-8.0) Urine Specific [place] 1.010 (1.000-1.030) Urine Protein Negative mg/dL (NEG-TRACE) Urine Glucose (UA) Negative mg/dL (NEG) Urine Ketones (Stick) Trace mg/dL (NEG) Urine Blood Negative (NEG) Urine Nitrite Negative (NEG) Urine Bilirubin Negative (NEG) Urine Urobilinogen Dipstick 1.0 mg/dL (0.2 mg/dL) Urine Leukocyte Esterase Negative (NEG) Urine RBC 1-2 /HPF (0-2) Urine WBC 1-4 /HPF (0-4) Urine Squamous Epithelial Cells Occ /LPF Urine Bacteria Few /HPF (0-FEW) Urine Hyaline Casts Few /HPF Sodium Level 140 mmol/L (136-145) Potassium Level 4.7 mmol/L (3.5-5.1) Chloride Level 105 mmol/L (98-107) Carbon Dioxide Level 22 mmol/L (21-32) Anion Gap 13 (6-14) Blood Urea Nitrogen 37 mg/dL (8-26) Creatinine 2.2 mg/dL (0.7-1.3) Estimated GFR (Cockcroft-Gault) 29.8 BUN/Creatinine Ratio 17 (6-20) Glucose Level 143 mg/dL (70-99) Calcium Level 9.4 mg/dL (8.5-10.1) Total Bilirubin 0.4 mg/dL (0.2-1.0) Aspartate Amino Transf (AST/SGOT) 37 U/L (15-37) Alanine Aminotransferase (ALT/SGPT) 37 U/L (16-63) Alkaline Phosphatase 64 U/L (46-116) Total Protein 7.7 g/dL (6.4-8.2) Albumin 3.8 g/dL (3.4-5.0) Albumin/Globulin Ratio 1.0 (1.0-1.7) SARS-CoV-2 Antigen (Rapid) Negative (NEGATIVE) Laboratory Tests Test 04/24/21 20:08 04/24/21 21:50 White Blood Count 10.1 x10^3/uL (4.0-11.0) Red Blood Count 4.38 x10^6/uL (4.30-5.70) Hemoglobin 14.1 g/dL (13.0-17.5) Hematocrit 41.5 % (39.0-53.0) Mean Corpuscular Volume 95 fL (79-100) Mean Corpuscular Hemoglobin 32 pg (25-35) Mean Corpuscular Hemoglobin Concent 34 g/dL (31-37) Red Cell Distribution Width 13.6 % (11.5-14.5) Platelet Count 145 x10^3/uL (140-400) Neutrophils (%) (Auto) 82 % (31-73) Lymphocytes (%) (Auto) 10 % (24-48) Monocytes (%) (Auto) 7 % (0-9) Eosinophils (%) (Auto) 0 % (0-3) Basophils (%) (Auto) 0 % (0-3) Neutrophils # (Auto) 8.3 x10^3/uL (1.8-7.7) Lymphocytes # (Auto) 1.0 x10^3/uL (1.0-4.8) Monocytes # (Auto) 0.7 x10^3/uL (0.0-1.1) Eosinophils # (Auto) 0.0 x10^3/uL (0.0-0.7) Basophils # (Auto) 0.0 x10^3/uL (0.0-0.2) Urine Color Yellow Urine Clarity Clear Urine pH 7.0 (<5.0-8.0) Urine Specific [place] 1.010 (1.000-1.030) Urine Protein Negative mg/dL (NEG-TRACE) Urine Glucose (UA) Negative mg/dL (NEG) Urine Ketones (Stick) Trace mg/dL (NEG) Urine Blood Negative (NEG) Urine Nitrite Negative (NEG) Urine Bilirubin Negative (NEG) Urine Urobilinogen Dipstick 1.0 mg/dL (0.2 mg/dL) Urine Leukocyte Esterase Negative (NEG) Urine RBC 1-2 /HPF (0-2) Urine WBC 1-4 /HPF (0-4) Urine Squamous Epithelial Cells Occ /LPF Urine Bacteria Few /HPF (0-FEW) Urine Hyaline Casts Few /HPF Sodium Level 140 mmol/L (136-145) Potassium Level 4.7 mmol/L (3.5-5.1) Chloride Level 105 mmol/L (98-107) Carbon Dioxide Level 22 mmol/L (21-32) Anion Gap 13 (6-14) Blood Urea Nitrogen 37 mg/dL (8-26) Creatinine 2.2 mg/dL (0.7-1.3) Estimated GFR (Cockcroft-Gault) 29.8 BUN/Creatinine Ratio 17 (6-20) Glucose Level 143 mg/dL (70-99) Calcium Level 9.4 mg/dL (8.5-10.1) Total Bilirubin 0.4 mg/dL (0.2-1.0) Aspartate Amino Transf (AST/SGOT) 37 U/L (15-37) Alanine Aminotransferase (ALT/SGPT) 37 U/L (16-63) Alkaline Phosphatase 64 U/L (46-116) Total Protein 7.7 g/dL (6.4-8.2) Albumin 3.8 g/dL (3.4-5.0) Albumin/Globulin Ratio 1.0 (1.0-1.7) SARS-CoV-2 Antigen (Rapid) Negative (NEGATIVE) Images Images Reviewed CT showing small mouthed ventral hernia with incarcerated small bowel causing obstruction Assessment/Plan Assessment/Plan Incarcerated ventral hernia with obstruction concerning for strangulation. Plan for emergent surgical repair. Discussed with the patient and his that he is at very high surgical risk for complications and even , without surgery the bowel would and cause infection leading to his . Patient is agreeable to proceed with surgery knowing the risks ZEINAB TEMPLETON MD Apr 24, 2021 22:49
[2021-04-24] MEDS ORDERED: ceFAZolin SODIUM 3 GM in IV DEXTROSE 5% 100ML 100 ML IV PRN (23:00)
[2021-04-24] MEDS ORDERED: SUCCINYLCHOLINE 200 MG/10 ML VIAL. ONE (23:30)
[2021-04-24] MEDS ORDERED: ROCURONIUM 100 MG/10 ML VIAL. ONE (23:30)
[2021-04-24] MEDS ORDERED: DESFLURANE 61 TO 120 MINUTES IH ONE (23:40)
[2021-04-24] MEDS ORDERED: ONDANSETRON PF 4 MG/2 ML VIAL. ONE (23:40)
[2021-04-24] MEDS ORDERED: PROPOFOL 10 MG/ML (20ML) VIAL. IV ONE (23:40)
[2021-04-24] MEDS ORDERED: FAMOTIDINE 20 MG/2 ML VIAL ONE (23:40)
[2021-04-24] MEDS ORDERED: DEXAMETHASONE SOD PHOS 4 MG/ML VIAL ONE (23:40)
[2021-04-24] MEDS ORDERED: LIDOCAINE 2% PF 5 ML VIAL. ONE (23:40)
[2021-04-24] MEDS ORDERED: NEOSTIGMINE METHYLSULFATE 5 MG/5 ML SYRINGE. ONE (23:53)
[2021-04-24] MEDS ORDERED: GLYCOPYRROLATE 1 MG/5 ML VIAL. ONE (23:53)
[2021-04-24] MEDS ORDERED: fentaNYL PF VIAL 100 MCG/2 ML VIAL ONE (23:57)
--- NOTE | 2021-04-25 00:36 | PDOC4 ---
Operative Note Operative Note Date: April 252020 at 12:33 AM Preoperative diagnosis: Strangulated ventral hernia Postoperative diagnosis: Same Procedure: Exploratory laparotomy with small bowel resection and repair of ventral hernia Surgeon: Jarvis Specimen: Small bowel and hernia sac with contents Dictation: Patient is 71-year-old male with a strangulated ventral hernia by CT scan with obstruction. The procedure exploratory laparotomy with repair of hernia with possible small bowel resection was explained to the patient detail risk-benefit were also discussed including bleeding infection injury to intra- abdominal contents possible necessitating further open operations alternatives to this procedure also discussed with the patient who seemed to understand and gave a verbal written consent to have procedure performed. Patient was taken to the operating room placed in the supine position general anesthesia was initiated once patient was sleeping intubated his abdomen was prepped and draped usual sterile fashion using ChloraPrep. Area over the hernia was incised with 10 blade scalpel is carried down through the subcutaneous tissues with electrocautery provided hemostasis was taken down to the hernia sac which was incised with electrocautery there is quite a bit of omentum unroofing the omentum and there was a knuckle of small bowel which was quite dusky purple in color the hernia defect was quite small this was further opened with electrocautery to allow for more bowel to be brought up into the hernia this did allow for some of the bowel did pink up but there is still quite a dusky soft section of bowel that was concerning. Some of the omentum was excised with the LigaSure a portion of the small bowel was excised with GI stapler 55 was proximally distally segment was then removed with the LigaSure to cauterize and cut the mesentery. The proximal distal ends were then brought to a [id number] fastened together with 3-0 Vicryl sutures enterotomies were made on the proximal distal side with electrocautery and a HENRRY stapler 55 was then used to staple anastomosis. Large enterotomy was then closed with a running 3-0 Vicryl interlocking suture and 3-0 Vicryl Lembert's. The bowel was then returned to the abdomen along with omentum and the fascia was closed with a running oh looped PDS. Deep subcutaneous layer was closed with running 3-0 Vicryl and the skin was reapproximated for subcuticular Monocryl Mastisol Steri-Strips and island dressings were applied. Patient was awakened and extubated in the operating room taken to recovery in stable condition all sponge instrument needle counts listed as correct estimated blood loss 20 mL ZEINAB TEMPLETON MD Apr 25, 2021 00:36
[2021-04-25] MEDS ORDERED: MORPHINE SULFATE 2 MG/ML INJ. ONE (01:27)
[2021-04-25] MEDS ORDERED: PROCHLORPERAZINE 10 MG/2 ML VIAL. IVP PRN (01:30)
[2021-04-25] MEDS ORDERED: IV RINGERS,LACTATED 1000ML 1,000 ML IV SCH (01:30)
[2021-04-25] MEDS ORDERED: INSULIN LISPRO 100 UNIT/ML 3ML VIAL for OP,RR ONLY. SQ PRN (01:30)
[2021-04-25] MEDS ORDERED: fentaNYL PF VIAL 100 MCG/2 ML VIAL IVP PRN ×2 (01:30)
[2021-04-25] MEDS ORDERED: HYDROmorphone 2 MG/ML VIAL IVP PRN (01:30)
[2021-04-25] MEDS: MORPHINE SULFATE 2 MG/ML INJ. IVP PRN ×2 (01:32→01:55)
[2021-04-25] MEDS ORDERED: TRAM50TA PO (01:51)
[2021-04-25] MEDS ORDERED: FINA5TAB4 PO (01:58)
[2021-04-25] MEDS ORDERED: SPIR25TA5 PO (01:59)
[2021-04-25 03:00] VITALS: BP 156/70
--- NOTE | 2021-04-25 03:53 | NUR ---
Admit from PACU via bed. S/P bowel resection and hernia repair. Drowsy on arrival. Able to converse without difficulty. NG to right landin place to LIS. O2 NC at 4L in place. Midline dressing CD&I. Orientated to room and call light. Reviewed POC to include NPO and pain management. Verbalized understanding. Sleeping. Easily aroused. Call light at hand.
--- NOTE | 2021-04-25 04:09 | NUR ---
Opens eyes when spoken too. Able to converse. Denies pain at this time. NG to LIS. Minimal drainage out in suction canister. Midline abd dressing CD&I. Abd soft. O2 4L NC. SpO2 95%. Call light at hand.
[2021-04-25] MEDS ORDERED: ceFAZolin SODIUM IV Push 1 GM VIAL. IVP SCH (06:00)
[2021-04-25 07:49] VITALS: BP 109/55
[2021-04-25] MEDS: ceFAZolin SODIUM 3 GM in IV DEXTROSE 5% 100ML 100 ML IV SCH ×2 (09:31→16:40)
--- NOTE | 2021-04-25 09:39 | PDOC ---
SURGICAL PROGRESS NOTE DATE: 04/25/21 TIME: 09:37 Subjective Patient doing well denies any nausea some incisional pain Vital Signs Vital Signs Date Time Temp Pulse Resp B/P (MAP) Pulse Ox O2 Delivery O2 Flow Rate FiO2 04/25/21 07:49 98.4 59 18 109/55 (73) 96 Nasal Cannula 5.0 98.4 I&O Intake and Output 04/25/21 07:00 Intake Total 2000 ml Output Total 550 ml Balance 1450 ml Intake Oral 0 ml IV Total 2000 ml Output Urine Total 100 ml Gastric Drainage Total 400 ml Estimated Blood Loss 50 ml PATIENT HAS A MONTENEGRO: No General: Alert, Oriented X3, Cooperative, mild distress Abdomen: Normal bowel sounds, Soft, Other (Wounds clean dry and intact mildly tender) Labs Laboratory Tests Test 04/24/21 20:08 04/24/21 21:50 04/25/21 01:08 White Blood Count 10.1 x10^3/uL (4.0-11.0) Red Blood Count 4.38 x10^6/uL (4.30-5.70) Hemoglobin 14.1 g/dL (13.0-17.5) Hematocrit 41.5 % (39.0-53.0) Mean Corpuscular Volume 95 fL (79-100) Mean Corpuscular Hemoglobin 32 pg (25-35) Mean Corpuscular Hemoglobin Concent 34 g/dL (31-37) Red Cell Distribution Width 13.6 % (11.5-14.5) Platelet Count 145 x10^3/uL (140-400) Neutrophils (%) (Auto) 82 % (31-73) Lymphocytes (%) (Auto) 10 % (24-48) Monocytes (%) (Auto) 7 % (0-9) Eosinophils (%) (Auto) 0 % (0-3) Basophils (%) (Auto) 0 % (0-3) Neutrophils # (Auto) 8.3 x10^3/uL (1.8-7.7) Lymphocytes # (Auto) 1.0 x10^3/uL (1.0-4.8) Monocytes # (Auto) 0.7 x10^3/uL (0.0-1.1) Eosinophils # (Auto) 0.0 x10^3/uL (0.0-0.7) Basophils # (Auto) 0.0 x10^3/uL (0.0-0.2) Urine Color Yellow Urine Clarity Clear Urine pH 7.0 (<5.0-8.0) Urine Specific [place] 1.010 (1.000-1.030) Urine Protein Negative mg/dL (NEG-TRACE) Urine Glucose (UA) Negative mg/dL (NEG) Urine Ketones (Stick) Trace mg/dL (NEG) Urine Blood Negative (NEG) Urine Nitrite Negative (NEG) Urine Bilirubin Negative (NEG) Urine Urobilinogen Dipstick 1.0 mg/dL (0.2 mg/dL) Urine Leukocyte Esterase Negative (NEG) Urine RBC 1-2 /HPF (0-2) Urine WBC 1-4 /HPF (0-4) Urine Squamous Epithelial Cells Occ /LPF Urine Bacteria Few /HPF (0-FEW) Urine Hyaline Casts Few /HPF Sodium Level 140 mmol/L (136-145) Potassium Level 4.7 mmol/L (3.5-5.1) Chloride Level 105 mmol/L (98-107) Carbon Dioxide Level 22 mmol/L (21-32) Anion Gap 13 (6-14) Blood Urea Nitrogen 37 mg/dL (8-26) Creatinine 2.2 mg/dL (0.7-1.3) Estimated GFR (Cockcroft-Gault) 29.8 BUN/Creatinine Ratio 17 (6-20) Glucose Level 143 mg/dL (70-99) Calcium Level 9.4 mg/dL (8.5-10.1) Total Bilirubin 0.4 mg/dL (0.2-1.0) Aspartate Amino Transf (AST/SGOT) 37 U/L (15-37) Alanine Aminotransferase (ALT/SGPT) 37 U/L (16-63) Alkaline Phosphatase 64 U/L (46-116) Total Protein 7.7 g/dL (6.4-8.2) Albumin 3.8 g/dL (3.4-5.0) Albumin/Globulin Ratio 1.0 (1.0-1.7) SARS-CoV-2 Antigen (Rapid) Negative (NEGATIVE) Glucose (Fingerstick) 189 mg/dL (70-99) Laboratory Tests Test 04/24/21 20:08 04/24/21 21:50 04/25/21 01:08 White Blood Count 10.1 x10^3/uL (4.0-11.0) Red Blood Count 4.38 x10^6/uL (4.30-5.70) Hemoglobin 14.1 g/dL (13.0-17.5) Hematocrit 41.5 % (39.0-53.0) Mean Corpuscular Volume 95 fL (79-100) Mean Corpuscular Hemoglobin 32 pg (25-35) Mean Corpuscular Hemoglobin Concent 34 g/dL (31-37) Red Cell Distribution Width 13.6 % (11.5-14.5) Platelet Count 145 x10^3/uL (140-400) Neutrophils (%) (Auto) 82 % (31-73) Lymphocytes (%) (Auto) 10 % (24-48) Monocytes (%) (Auto) 7 % (0-9) Eosinophils (%) (Auto) 0 % (0-3) Basophils (%) (Auto) 0 % (0-3) Neutrophils # (Auto) 8.3 x10^3/uL (1.8-7.7) Lymphocytes # (Auto) 1.0 x10^3/uL (1.0-4.8) Monocytes # (Auto) 0.7 x10^3/uL (0.0-1.1) Eosinophils # (Auto) 0.0 x10^3/uL (0.0-0.7) Basophils # (Auto) 0.0 x10^3/uL (0.0-0.2) Urine Color Yellow Urine Clarity Clear Urine pH 7.0 (<5.0-8.0) Urine Specific [place] 1.010 (1.000-1.030) Urine Protein Negative mg/dL (NEG-TRACE) Urine Glucose (UA) Negative mg/dL (NEG) Urine Ketones (Stick) Trace mg/dL (NEG) Urine Blood Negative (NEG) Urine Nitrite Negative (NEG) Urine Bilirubin Negative (NEG) Urine Urobilinogen Dipstick 1.0 mg/dL (0.2 mg/dL) Urine Leukocyte Esterase Negative (NEG) Urine RBC 1-2 /HPF (0-2) Urine WBC 1-4 /HPF (0-4) Urine Squamous Epithelial Cells Occ /LPF Urine Bacteria Few /HPF (0-FEW) Urine Hyaline Casts Few /HPF Sodium Level 140 mmol/L (136-145) Potassium Level 4.7 mmol/L (3.5-5.1) Chloride Level 105 mmol/L (98-107) Carbon Dioxide Level 22 mmol/L (21-32) Anion Gap 13 (6-14) Blood Urea Nitrogen 37 mg/dL (8-26) Creatinine 2.2 mg/dL (0.7-1.3) Estimated GFR (Cockcroft-Gault) 29.8 BUN/Creatinine Ratio 17 (6-20) Glucose Level 143 mg/dL (70-99) Calcium Level 9.4 mg/dL (8.5-10.1) Total Bilirubin 0.4 mg/dL (0.2-1.0) Aspartate Amino Transf (AST/SGOT) 37 U/L (15-37) Alanine Aminotransferase (ALT/SGPT) 37 U/L (16-63) Alkaline Phosphatase 64 U/L (46-116) Total Protein 7.7 g/dL (6.4-8.2) Albumin 3.8 g/dL (3.4-5.0) Albumin/Globulin Ratio 1.0 (1.0-1.7) SARS-CoV-2 Antigen (Rapid) Negative (NEGATIVE) Glucose (Fingerstick) 189 mg/dL (70-99) Problem List Problems Medical Problems: (1) Abdominal pain Status: Acute (2) Hernia, umbilical, with obstruction Status: Acute Assessment/Plan Status post strangulated ventral hernia repair with small bowel resection DC NG tube maintain on ice chips increase activity Justicifation of Admission Dx: Justifications for Admission: Justification of Admission Dx: N/A ZEINAB TEMPLETON MD Apr 25, 2021 09:38
[2021-04-25 10:22] VITALS: BP 130/63
[2021-04-25] MEDS ORDERED: FUROSEMIDE 80 MG TABLET. PO SCH (11:00)
[2021-04-25] MEDS: CITALOPRAM 20 MG TABLET. PO SCH (11:13)
[2021-04-25] MEDS: PANTOPRAZOLE 40 MG TABLET.DR. PO SCH (11:13)
[2021-04-25] MEDS: APIXABAN 5 MG TABLET. PO SCH ×2 (11:13→20:55)
[2021-04-25] MEDS: POTASSIUM CHLORIDE 20 MEQ TABLET.ER. PO SCH (11:13)
[2021-04-25] MEDS: FINASTERIDE 5 MG TABLET. PO SCH (11:13)
[2021-04-25] MEDS: traMADol 50 MG TABLET PO SCH ×3 (11:13→20:55)
[2021-04-25] MEDS: LISINOPRIL 20 MG TABLET PO SCH (11:14)
[2021-04-25] MEDS: SPIRONOLACTONE 25 MG TABLET PO SCH (11:14)
[2021-04-25] MEDS: ASPIRIN ENTERIC COATED 81 MG TABLET.DR. PO SCH (11:14)
[2021-04-25] MEDS: TAMSULOSIN 0.4 MG CAP.ER.24H. PO SCH (11:14)
[2021-04-25] MEDS: FLECAINIDE ACETATE 50 MG TABLET. PO SCH ×2 (11:14→20:56)
--- NOTE | 2021-04-25 11:34 | HP ---
DATE OF SERVICE: 04/25/2021 ADMIT DATE: 04/24/2021 CHIEF COMPLAINT AND HISTORY OF PRESENT ILLNESS: This 71-year-old male presented to the Emergency Room with severe abdominal pain starting on the afternoon of admission. He was helping someone move some stuff with a helen, when the helen slipped and hit him in his abdomen, feeling like that was the instigator of this. He was found to have an incarcerated, strangulated ventral abdominal hernia and admitted with emergent surgery done. PAST MEDICAL HISTORY: Remarkable for CHF, COPD, diabetes, hypertension, AFib, obstructive sleep apnea. PAST SURGICAL HISTORY: Remarkable for cervical fusion, TURP, adenoidectomy, hernia surgery, carpal tunnel. MEDICATIONS: Brought with the patient, listed on the computer have been addressed. ALLERGIES: HE HAS NO KNOWN DRUG ALLERGIES. SOCIAL HISTORY: He is a lifetime nonsmoker, nondrinker, does not use drugs. FAMILY HISTORY: Noncontributory. REVIEW OF SYSTEMS: Remarkable for him feeling a little bloated this morning and some postoperative pain, but nothing compared to the pain he had in the Emergency Room prior to repair of the hernia, which required resection of a small area of small bowel that was nonviable. PHYSICAL EXAMINATION: GENERAL: He is a obese white male in mild distress. VITAL SIGNS: Stable. He is afebrile. HEAD, EYES, EARS, NOSE AND THROAT: Unremarkable. NECK: Supple, without lymphadenopathy or thyromegaly. CHEST: Distant breath sounds, but clear. HEART: Regular rate and rhythm without S3, S4 or murmur. ABDOMEN: Soft, expected postoperative tenderness. Silent with no good bowel sounds. EXTREMITIES: Without cyanosis, clubbing or edema. NEUROLOGIC: He is intact. ASSESSMENT: 1. Strangulated hernia, status post surgery as discussed above. 2. Multiple other problems listed above. PLAN: We will restart home medicines. His NG is coming out this morning with sips of water and probably will hold off at least tomorrow to restart his Eliquis. FELIPA/SURESH DR: Paula TID: [id number] CC: RONI WILEY MD
[2021-04-25 14:11] VITALS: BP 132/61
[2021-04-25 19:40] VITALS: BP 105/54
[2021-04-25] MEDS: ATORVASTATIN CALCIUM 10 MG TABLET. PO SCH (20:55)
[2021-04-25 22:36] VITALS: BP 99/54
[2021-04-26] MEDS: ceFAZolin SODIUM 3 GM in IV DEXTROSE 5% 100ML 100 ML IV SCH (00:03)
[2021-04-26 02:51] VITALS: BP 92/50
[2021-04-26 04:56] LABS: CREATININE 2.1 mg/dL (0.7-1.3); GFR 31.5
[2021-04-26] MEDS: traMADol 50 MG TABLET PO SCH ×3 (06:03→21:12)
[2021-04-26 07:00] VITALS: BP 96/54
[2021-04-26] MEDS: POTASSIUM CHLORIDE 20 MEQ TABLET.ER. PO SCH (08:00)
[2021-04-26] MEDS: LISINOPRIL 20 MG TABLET PO SCH (09:00)
[2021-04-26] MEDS: SPIRONOLACTONE 25 MG TABLET PO SCH (09:00)
[2021-04-26] MEDS: ASPIRIN ENTERIC COATED 81 MG TABLET.DR. PO SCH (09:00)
[2021-04-26] MEDS: FLECAINIDE ACETATE 50 MG TABLET. PO SCH ×2 (09:00→21:10)
[2021-04-26] MEDS ORDERED: metFORMIN 500 MG TABLET PO SCH (09:00)
--- NOTE | 2021-04-26 09:16 | PDOC ---
SURGICAL PROGRESS NOTE DATE: 04/26/21 TIME: 09:15 Subjective Resting comfortably denies any abdominal pain denies any flatus or bowel movement Vital Signs Vital Signs Date Time Temp Pulse Resp B/P (MAP) Pulse Ox O2 Delivery O2 Flow Rate FiO2 04/26/21 07:00 97.7 62 18 96/54 (68) 96 Nasal Cannula 2.0 97.7 I&O Intake and Output 04/26/21 07:00 Intake Total 550 ml Output Total 2800 ml Balance -2250 ml Intake Oral 450 ml IV Total 100 ml Output Urine Total 2800 ml Gastric Drainage Total 0 ml PATIENT HAS A MONTENEGRO: No General: Alert, Oriented X3, Cooperative, mild distress Abdomen: Normal bowel sounds, Soft, Other (Mild incisional tenderness wounds clean dry and intact) Labs Laboratory Tests Test 04/24/21 20:08 04/24/21 21:50 04/25/21 01:08 04/25/21 10:50 White Blood Count 10.1 x10^3/uL (4.0-11.0) Red Blood Count 4.38 x10^6/uL (4.30-5.70) Hemoglobin 14.1 g/dL (13.0-17.5) Hematocrit 41.5 % (39.0-53.0) Mean Corpuscular Volume 95 fL (79-100) Mean Corpuscular Hemoglobin 32 pg (25-35) Mean Corpuscular Hemoglobin Concent 34 g/dL (31-37) Red Cell Distribution Width 13.6 % (11.5-14.5) Platelet Count 145 x10^3/uL (140-400) Neutrophils (%) (Auto) 82 % (31-73) Lymphocytes (%) (Auto) 10 % (24-48) Monocytes (%) (Auto) 7 % (0-9) Eosinophils (%) (Auto) 0 % (0-3) Basophils (%) (Auto) 0 % (0-3) Neutrophils # (Auto) 8.3 x10^3/uL (1.8-7.7) Lymphocytes # (Auto) 1.0 x10^3/uL (1.0-4.8) Monocytes # (Auto) 0.7 x10^3/uL (0.0-1.1) Eosinophils # (Auto) 0.0 x10^3/uL (0.0-0.7) Basophils # (Auto) 0.0 x10^3/uL (0.0-0.2) Urine Color Yellow Urine Clarity Clear Urine pH 7.0 (<5.0-8.0) Urine Specific Lawrence 1.010 (1.000-1.030) Urine Protein Negative mg/dL (NEG-TRACE) Urine Glucose (UA) Negative mg/dL (NEG) Urine Ketones (Stick) Trace mg/dL (NEG) Urine Blood Negative (NEG) Urine Nitrite Negative (NEG) Urine Bilirubin Negative (NEG) Urine Urobilinogen Dipstick 1.0 mg/dL (0.2 mg/dL) Urine Leukocyte Esterase Negative (NEG) Urine RBC 1-2 /HPF (0-2) Urine WBC 1-4 /HPF (0-4) Urine Squamous Epithelial Cells Occ /LPF Urine Bacteria Few /HPF (0-FEW) Urine Hyaline Casts Few /HPF Sodium Level 140 mmol/L (136-145) Potassium Level 4.7 mmol/L (3.5-5.1) Chloride Level 105 mmol/L (98-107) Carbon Dioxide Level 22 mmol/L (21-32) Anion Gap 13 (6-14) Blood Urea Nitrogen 37 mg/dL (8-26) Creatinine 2.2 mg/dL (0.7-1.3) Estimated GFR (Cockcroft-Gault) 29.8 BUN/Creatinine Ratio 17 (6-20) Glucose Level 143 mg/dL (70-99) Calcium Level 9.4 mg/dL (8.5-10.1) Total Bilirubin 0.4 mg/dL (0.2-1.0) Aspartate Amino Transf (AST/SGOT) 37 U/L (15-37) Alanine Aminotransferase (ALT/SGPT) 37 U/L (16-63) Alkaline Phosphatase 64 U/L (46-116) Total Protein 7.7 g/dL (6.4-8.2) Albumin 3.8 g/dL (3.4-5.0) Albumin/Globulin Ratio 1.0 (1.0-1.7) SARS-CoV-2 RNA (DANIELITO) Negative (Negative) SARS-CoV-2 Antigen (Rapid) Negative (NEGATIVE) Glucose (Fingerstick) 189 mg/dL (70-99) 131 mg/dL (70-99) Test 04/25/21 16:27 04/25/21 20:33 04/26/21 04:00 04/26/21 07:32 Glucose (Fingerstick) 126 mg/dL (70-99) 100 mg/dL (70-99) 116 mg/dL (70-99) Creatinine 2.1 mg/dL (0.7-1.3) Estimated GFR (Cockcroft-Gault) 31.5 Laboratory Tests Test 04/25/21 10:50 04/25/21 16:27 04/25/21 20:33 04/26/21 04:00 Glucose (Fingerstick) 131 mg/dL (70-99) 126 mg/dL (70-99) 100 mg/dL (70-99) Creatinine 2.1 mg/dL (0.7-1.3) Estimated GFR (Cockcroft-Gault) 31.5 Test 04/26/21 07:32 Glucose (Fingerstick) 116 mg/dL (70-99) Problem List Problems Medical Problems: (1) Abdominal pain Status: Acute (2) Hernia, umbilical, with obstruction Status: Acute Assessment/Plan Status post repair of ventral hernia with strangulated small bowel small bowel resection awaiting return of bowel function Justicifation of Admission Dx: Justifications for Admission: Justification of Admission Dx: N/A ZEINAB TEMPLETON MD Apr 26, 2021 09:16
--- NOTE | 2021-04-26 10:04 | PN ---
DATE: 04/26/2021 DAILY PROGRESS NOTE LOCATION: He is in room 660. SUBJECTIVE: This 71-year-old male status post repair of ventral abdominal hernia with partial small-bowel obstruction due to nonviable bowel. He has no flatus to date. States that he does not have a significant amount of pain, but is anxious to get going. OBJECTIVE: VITAL SIGNS: Stable. He is afebrile. GENERAL: He is awake and alert. CHEST: Clear. HEART: Regular. ABDOMEN: Soft, silent, expected postoperative tenderness. ASSESSMENT: 1. Status post surgery as noted above. 2. Multiple other medical problems. PLAN: Continue present care. We will start IV fluids and hold Lasix at this point at least until he is taking p.o. again. JOHNNY DR: Paula TID: [id number]
[2021-04-26 11:00] VITALS: BP 95/50
[2021-04-26] MEDS: IV NORMAL SALINE 1000ML BAG 1,000 ML IV SCH ×2 (11:36→21:14)
[2021-04-26] MEDS: FINASTERIDE 5 MG TABLET. PO SCH (11:37)
[2021-04-26] MEDS: PANTOPRAZOLE 40 MG TABLET.DR. PO SCH (11:38)
[2021-04-26] MEDS: TAMSULOSIN 0.4 MG CAP.ER.24H. PO SCH (11:38)
[2021-04-26] MEDS: APIXABAN 5 MG TABLET. PO SCH ×2 (11:38→21:11)
[2021-04-26] MEDS: CITALOPRAM 20 MG TABLET. PO SCH (11:39)
[2021-04-26 15:00] VITALS: BP 109/53
[2021-04-26 19:27] VITALS: BP 106/52
[2021-04-26] MEDS: ATORVASTATIN CALCIUM 10 MG TABLET. PO SCH (21:11)
[2021-04-26 22:26] VITALS: BP 121/59
[2021-04-27 03:28] VITALS: BP 129/61
[2021-04-27] MEDS: traMADol 50 MG TABLET PO SCH ×3 (05:39→22:30)
[2021-04-27 07:00] VITALS: BP 104/58
[2021-04-27] MEDS: CITALOPRAM 20 MG TABLET. PO SCH (08:33)
[2021-04-27] MEDS: ASPIRIN ENTERIC COATED 81 MG TABLET.DR. PO SCH (08:33)
[2021-04-27] MEDS: TAMSULOSIN 0.4 MG CAP.ER.24H. PO SCH (08:33)
[2021-04-27] MEDS: APIXABAN 5 MG TABLET. PO SCH ×2 (08:33→21:14)
[2021-04-27] MEDS: PANTOPRAZOLE 40 MG TABLET.DR. PO SCH (08:33)
[2021-04-27] MEDS: POTASSIUM CHLORIDE 20 MEQ TABLET.ER. PO SCH (08:33)
[2021-04-27] MEDS: SPIRONOLACTONE 25 MG TABLET PO SCH (08:34)
[2021-04-27] MEDS: FINASTERIDE 5 MG TABLET. PO SCH (08:34)
[2021-04-27] MEDS: FLECAINIDE ACETATE 50 MG TABLET. PO SCH ×2 (08:35→21:14)
[2021-04-27] MEDS: LISINOPRIL 20 MG TABLET PO SCH (08:36)
--- NOTE | 2021-04-27 09:15 | PDOC ---
SURGICAL PROGRESS NOTE DATE: 04/27/21 TIME: 09:14 Subjective Patient doing a lot better has been passing some flatus no nausea Vital Signs Vital Signs Date Time Temp Pulse Resp B/P (MAP) Pulse Ox O2 Delivery O2 Flow Rate FiO2 04/27/21 08:36 70 104/58 04/27/21 07:00 96.0 20 96 BiPAP/CPAP 96.0 04/27/21 03:28 2.0 I&O Intake and Output 04/27/21 07:00 Intake Total 1180 ml Output Total 475 ml Balance 705 ml Intake Oral 200 ml IV Total 980 ml Output Urine Total 475 ml # Voids 1 PATIENT HAS A MONTENEGRO: No General: Alert, Oriented X3, Cooperative, mild distress Abdomen: Normal bowel sounds, Soft, Other (Mild incisional tenderness wounds clean dry and intact) Labs Laboratory Tests Test 04/25/21 10:50 04/25/21 16:27 04/25/21 20:33 04/26/21 04:00 Glucose (Fingerstick) 131 mg/dL (70-99) 126 mg/dL (70-99) 100 mg/dL (70-99) Creatinine 2.1 mg/dL (0.7-1.3) Estimated GFR (Cockcroft-Gault) 31.5 Test 04/26/21 07:32 04/26/21 11:37 04/26/21 17:20 04/26/21 21:37 Glucose (Fingerstick) 116 mg/dL (70-99) 113 mg/dL (70-99) 99 mg/dL (70-99) 90 mg/dL (70-99) Test 04/27/21 08:14 Glucose (Fingerstick) 125 mg/dL (70-99) Laboratory Tests Test 04/26/21 11:37 04/26/21 17:20 04/26/21 21:37 04/27/21 08:14 Glucose (Fingerstick) 113 mg/dL (70-99) 99 mg/dL (70-99) 90 mg/dL (70-99) 125 mg/dL (70-99) Problem List Problems Medical Problems: (1) Abdominal pain Status: Acute (2) Hernia, umbilical, with obstruction Status: Acute Assessment/Plan Status post ventral hernia repair with resection of small bowel. Start clear liquid diet increase activity Justicifation of Admission Dx: Justifications for Admission: Justification of Admission Dx: N/A ZEINAB TEMPLETON MD Apr 27, 2021 09:15
--- NOTE | 2021-04-27 10:38 | PDOC ---
Provider Note Date of Service: DATE: 04/27/21 TIME: 10:37 Provider Note sleeping, no dyspnea- will hold amlo re lower bp, repeat bmp re gfr- rest same, iv slaine still Justifications for Admission Other Justification RONI WILEY MD Apr 27, 2021 10:37
[2021-04-27] MEDS: IV NORMAL SALINE 1000ML BAG 1,000 ML IV SCH (10:59)
[2021-04-27 11:00] VITALS: BP 121/59
[2021-04-27 15:00] VITALS: BP 128/60
[2021-04-27 19:53] VITALS: BP 108/54
[2021-04-27] MEDS: ATORVASTATIN CALCIUM 10 MG TABLET. PO SCH (21:14)
[2021-04-27 22:37] VITALS: BP 123/60
[2021-04-28 03:24] VITALS: BP 131/63
[2021-04-28 04:01] LABS: CALCIUM 8.8 mg/dL (8.5-10.1); CREATININE 1.5 mg/dL (0.7-1.3); GFR 46.4; POTASSIUM 4.6 mmol/L (3.5-5.1)
[2021-04-28] MEDS: IV NORMAL SALINE 1000ML BAG 1,000 ML IV SCH ×2 (05:53→22:15)
[2021-04-28] MEDS: traMADol 50 MG TABLET PO SCH ×3 (05:53→21:47)
[2021-04-28 06:06] VITALS: BP 130/61
[2021-04-28] MEDS: PANTOPRAZOLE 40 MG TABLET.DR. PO SCH (08:30)
[2021-04-28] MEDS: SPIRONOLACTONE 25 MG TABLET PO SCH (08:30)
[2021-04-28] MEDS: CITALOPRAM 20 MG TABLET. PO SCH (08:30)
[2021-04-28] MEDS: POTASSIUM CHLORIDE 20 MEQ TABLET.ER. PO SCH (08:30)
[2021-04-28] MEDS: TAMSULOSIN 0.4 MG CAP.ER.24H. PO SCH (08:31)
[2021-04-28] MEDS: FINASTERIDE 5 MG TABLET. PO SCH (08:31)
[2021-04-28] MEDS: ASPIRIN ENTERIC COATED 81 MG TABLET.DR. PO SCH (08:31)
[2021-04-28] MEDS: APIXABAN 5 MG TABLET. PO SCH ×2 (08:31→21:00)
[2021-04-28] MEDS: LISINOPRIL 20 MG TABLET PO SCH (08:31)
[2021-04-28] MEDS: FLECAINIDE ACETATE 50 MG TABLET. PO SCH ×2 (08:32→21:02)
--- NOTE | 2021-04-28 09:26 | PDOC ---
SURGICAL PROGRESS NOTE DATE: 04/28/21 TIME: 09:25 Subjective Patient doing quite well tolerating clear liquid diet passing flatus no bowel movement Vital Signs Vital Signs Date Time Temp Pulse Resp B/P (MAP) Pulse Ox O2 Delivery O2 Flow Rate FiO2 04/28/21 08:32 59 130/61 04/28/21 06:23 99 Nasal Cannula 2.0 04/28/21 06:06 98.0 18 98.0 I&O Intake and Output 04/28/21 07:00 Intake Total 2440 ml Output Total 1425 ml Balance 1015 ml Intake Oral 1440 ml IV Total 1000 ml Output Urine Total 1425 ml # Voids 1 PATIENT HAS A MONTENEGRO: No General: Alert, Oriented X3, Cooperative, mild distress Abdomen: Normal bowel sounds, Soft, Other (Mild incisional tenderness wounds clean dry and intact) Labs Laboratory Tests Test 04/26/21 11:37 04/26/21 17:20 04/26/21 21:37 04/27/21 08:14 Glucose (Fingerstick) 113 mg/dL (70-99) 99 mg/dL (70-99) 90 mg/dL (70-99) 125 mg/dL (70-99) Test 04/27/21 11:24 04/28/21 03:00 04/28/21 08:03 Glucose (Fingerstick) 128 mg/dL (70-99) 139 mg/dL (70-99) Sodium Level 143 mmol/L (136-145) Potassium Level 4.6 mmol/L (3.5-5.1) Chloride Level 108 mmol/L (98-107) Carbon Dioxide Level 26 mmol/L (21-32) Anion Gap 9 (6-14) Blood Urea Nitrogen 46 mg/dL (8-26) Creatinine 1.5 mg/dL (0.7-1.3) Estimated GFR (Cockcroft-Gault) 46.4 Glucose Level 133 mg/dL (70-99) Calcium Level 8.8 mg/dL (8.5-10.1) Laboratory Tests Test 04/27/21 11:24 04/28/21 03:00 04/28/21 08:03 Glucose (Fingerstick) 128 mg/dL (70-99) 139 mg/dL (70-99) Sodium Level 143 mmol/L (136-145) Potassium Level 4.6 mmol/L (3.5-5.1) Chloride Level 108 mmol/L (98-107) Carbon Dioxide Level 26 mmol/L (21-32) Anion Gap 9 (6-14) Blood Urea Nitrogen 46 mg/dL (8-26) Creatinine 1.5 mg/dL (0.7-1.3) Estimated GFR (Cockcroft-Gault) 46.4 Glucose Level 133 mg/dL (70-99) Calcium Level 8.8 mg/dL (8.5-10.1) Problem List Problems Medical Problems: (1) Abdominal pain Status: Acute (2) Hernia, umbilical, with obstruction Status: Acute Assessment/Plan Advance diet to full liquids continue supportive care Justicifation of Admission Dx: Justifications for Admission: Justification of Admission Dx: N/A ZEINAB TEMPLETON MD Apr 28, 2021 09:26
--- NOTE | 2021-04-28 09:51 | PDOC ---
Provider Note Date of Service: DATE: 04/28/21 TIME: 09:50 Provider Note VSS, BP BETTER OFF AMLO- CREAAT BETTER, WILL REDUCE IV SALINE, HOLD KCL/SPIRONO, FOLLOW- DIET ADVANCING WELL Justifications for Admission Other Justification RONI WILEY MD Apr 28, 2021 09:51
[2021-04-28 11:05] VITALS: BP 111/55
[2021-04-28 15:15] VITALS: BP 123/55
[2021-04-28 19:18] VITALS: BP 128/58
[2021-04-28] MEDS: ATORVASTATIN CALCIUM 10 MG TABLET. PO SCH (21:00)
[2021-04-28 22:34] VITALS: BP 119/58
[2021-04-29 02:42] VITALS: BP 109/57
[2021-04-29] MEDS: traMADol 50 MG TABLET PO SCH ×3 (06:07→21:24)
[2021-04-29 07:00] VITALS: BP 108/54
[2021-04-29] MEDS: FINASTERIDE 5 MG TABLET. PO SCH (09:15)
[2021-04-29] MEDS: CITALOPRAM 20 MG TABLET. PO SCH (09:15)
[2021-04-29] MEDS: ASPIRIN ENTERIC COATED 81 MG TABLET.DR. PO SCH (09:15)
[2021-04-29] MEDS: LISINOPRIL 20 MG TABLET PO SCH (09:16)
[2021-04-29] MEDS: metFORMIN 500 MG TABLET PO SCH (09:16)
[2021-04-29] MEDS: APIXABAN 5 MG TABLET. PO SCH ×2 (09:16→21:24)
[2021-04-29] MEDS: TAMSULOSIN 0.4 MG CAP.ER.24H. PO SCH (09:17)
[2021-04-29] MEDS: PANTOPRAZOLE 40 MG TABLET.DR. PO SCH (09:17)
[2021-04-29] MEDS: FLECAINIDE ACETATE 50 MG TABLET. PO SCH ×2 (09:17→21:23)
--- NOTE | 2021-04-29 10:55 | PDOC ---
SURGICAL PROGRESS NOTE DATE: 04/29/21 TIME: 10:52 Subjective tolerating diet + flatus, no stool pain 4-5 Vital Signs Vital Signs Date Time Temp Pulse Resp B/P (MAP) Pulse Ox O2 Delivery O2 Flow Rate FiO2 04/29/21 09:17 65 108/54 04/29/21 07:50 Nasal Cannula 2.0 04/29/21 07:00 97.7 20 96 97.7 I&O Intake and Output 04/29/21 07:00 Intake Total 1662 ml Output Total 1450 ml Balance 212 ml Intake Oral 1000 ml IV Total 662 ml Output Urine Total 1450 ml # Voids 6 General: Alert, Oriented X3, Cooperative Abdomen: Soft, Other (incision intact) Labs Laboratory Tests Test 04/27/21 11:24 04/28/21 03:00 04/28/21 08:03 04/28/21 11:31 Glucose (Fingerstick) 128 mg/dL (70-99) 139 mg/dL (70-99) 108 mg/dL (70-99) Sodium Level 143 mmol/L (136-145) Potassium Level 4.6 mmol/L (3.5-5.1) Chloride Level 108 mmol/L (98-107) Carbon Dioxide Level 26 mmol/L (21-32) Anion Gap 9 (6-14) Blood Urea Nitrogen 46 mg/dL (8-26) Creatinine 1.5 mg/dL (0.7-1.3) Estimated GFR (Cockcroft-Gault) 46.4 Glucose Level 133 mg/dL (70-99) Calcium Level 8.8 mg/dL (8.5-10.1) Test 04/28/21 16:07 04/29/21 08:06 Glucose (Fingerstick) 88 mg/dL (70-99) 106 mg/dL (70-99) Laboratory Tests Test 04/28/21 11:31 04/28/21 16:07 04/29/21 08:06 Glucose (Fingerstick) 108 mg/dL (70-99) 88 mg/dL (70-99) 106 mg/dL (70-99) Problem List Problems Medical Problems: (1) Abdominal pain Status: Acute (2) Hernia, umbilical, with obstruction Status: Acute Assessment/Plan s/p xlap advance diet Justicifation of Admission Dx: Justifications for Admission: Justification of Admission Dx: N/A ANAHY ARRIAGA SALES AND LEASING AGENT Apr 29, 2021 10:55
[2021-04-29 11:00] VITALS: BP 116/53
[2021-04-29] MEDS: DOCUSATE SODIUM 100 MG CAPSULE. PO SCH (11:53)
--- NOTE | 2021-04-29 12:45 | NUR ---
SS following for discharge planning. SS reviewed pt chart and discussed with pt RN. Pt is from home and is currently requiring oxygen at two liters nasal canula. COVID19 negative. Pt had exploratory laparotomy with small bowel resection and repair of ventral hernia on 04/24/2021. PO diet. Currently awaiting bowel movement at this time. PT[facility]OT [facility]. SS met with pt and discussed [facility] and discharge planning. Pt declined [facility] at this time and reported that he would like to return to home with home healthcare with no preference of company. Pt reported that he recently moved to [address] [place] [id number], and would like to return to home. Dr. Hernandez notified. SS will continue to follow for discharge planning.
[2021-04-29 15:00] VITALS: BP 122/58
[2021-04-29 19:50] VITALS: BP 124/56
[2021-04-29] MEDS: ATORVASTATIN CALCIUM 10 MG TABLET. PO SCH (21:24)
[2021-04-29 23:25] VITALS: BP 111/56
[2021-04-30 03:15] VITALS: BP 118/58
[2021-04-30] MEDS: traMADol 50 MG TABLET PO SCH ×2 (06:05→12:50)
[2021-04-30 07:00] VITALS: BP 135/58
--- NOTE | 2021-04-30 07:45 | SNU/HH DC ---
DISCHARGE WITH HOME HEALTH DISCHARGE INFORMATION: Final Diagnosis: Problems Medical Problems: (1) Abdominal pain Status: Acute (2) Hernia, umbilical, with obstruction Status: Acute Condition on Discharge: Stable CODE STATUS: Code Status: Full HOME HEALTH: Face to Face: I certify this patient is under my care and that I, or a nurse practitioner or physician's assistant golf course superintendent working with me, had a face to face encounter that meets the physician face to face encounter requirements with this patient on []. Medical Complications: DM RN For Eval/Treatment: No Pt Meets Homebound Status: Unsteady balance w/ amb, POST DISCHARGE ORDERS: Activity Instructions for Disc: Activity as tolerated Weight Bearing Status after Di: No restrictions DIET AFTER DISCHARGE: ADA TREATMENT/EQUIPMENT ORDERS: Adaptive Equipment Issued: None CERTIFICATION STATEMENT: Certification Statement: Certification Statement: Based on the above finding, I certify that this patient is confined to the home and needs intermittent senior living care, physical therapy and/or speech therapy, or continues to need occupational therapy.~ This patient is under my care, and I have initiated the establishment of the plan of care.~ This patient will be followed by myself or a community physician who will periodically review the plan of care. Home Meds Reported Medications Spironolactone (SPIRONOLACTONE) 25 Mg Tablet, 25 MG PO DAILY for CHF, TAB 04/25/21 Finasteride (FINASTERIDE) 5 Mg Tablet, 5 MG PO DAILY for BPH, TAB 04/25/21 Tramadol Hcl (TRAMADOL HCL) 50 Mg Tablet, 50 MG PO Q8HRS for pain, TAB 04/25/21 Flecainide Acetate (FLECAINIDE ACETATE) 100 Mg Tablet, 100 MG PO BID for A-FIB, TAB 03/29/21 Acetaminophen (ACETAMINOPHEN) 500 Mg Tablet, 1 TAB PO PRN Q6HRS PRN for pain or fever for 15 Days, #60 TAB 0 Refills 08/07/19 Apixaban (ELIQUIS) 5 Mg Tablet, 5 MG PO BID for AFIB, TAB 08/07/19 Escitalopram Oxalate (ESCITALOPRAM OXALATE) 20 Mg Tablet, 20 MG PO DAILY for ANTI-DEPRESSANT, TAB 0 Refills 08/07/19 Tamsulosin Hcl (FLOMAX) 0.4 Mg Cap.er.24h, 2 CAP PO DAILY for BPH, #30 CAP 11 Refills 3/8/20 Metformin Hcl (METFORMIN HCL) 500 Mg Tablet, 500 MG PO DAILY for ANTI-DIABETIC, TAB 0 Refills 08/07/19 Aspirin (ASPIRIN EC) 81 Mg Tablet.dr, 1 TAB PO DAILY for AFIB, #30 TAB 3 Refills 08/07/19 Potassium Chloride (POTASSIUM CHLORIDE) 10 Meq Tab.er.prt, 20 MEQ PO DAILY, TAB.SR 11/17/13 Lovastatin (LOVASTATIN) 40 Mg Tablet, 40 MG PO HS, TAB 11/17/13 Furosemide (FUROSEMIDE) 80 Mg Tablet, 80 MG PO DAILY, TAB 11/17/13 Lisinopril (LISINOPRIL) 40 Mg Tablet, 40 MG PO DAILY for FOR HYPERTENSION, #30 TAB 0 Refills 11/17/13 Omeprazole (OMEPRAZOLE) 40 Mg Capsule.dr, 40 MG PO DAILY, CAP 11/17/13 Amlodipine Besylate (AMLODIPINE BESYLATE) 10 Mg Tablet, 10 MG PO DAILY, TAB 11/17/13 Cyanocobalamin (Vitamin B-12) (B-12) 500 Mcg Tablet, 2500 MCG PO DAILY 11/17/13 Hydralazine Hcl (HYDRALAZINE HCL) 50 Mg Tablet, 50 MG PO TID, TAB 11/17/13 Cholecalciferol (Vitamin D3) (VITAMIN D) 5,000 Unit Tablet, 5000 UNIT PO DAILY for SUPPLEMENT 11/17/13 Multivitamin (MULTI-VITAMIN DAILY) 1 Each Tablet, 1 EACH PO DAILY 11/17/13 Winslow-3 Fatty Acids (FISH OIL) 300 Mg Capsule, 360 MG PO DAILY 11/17/13 RONI WILEY MD Apr 30, 2021 07:45
--- NOTE | 2021-04-30 07:49 | PDOC ---
Provider Note Date of Service: DATE: 04/30/21 TIME: 07:47 Provider Note [id number] Justifications for Admission Other Justification RONI WILEY MD Apr 30, 2021 07:49
--- NOTE | 2021-04-30 07:59 | DS ---
DATE OF DISCHARGE: 04/30/2021 HOSPITAL SUMMARY: A 71-year-old white male admitted with upper abdominal pain, mass and swelling consistent with an incarcerated supraumbilical hernia. CT scan showed the umbilical hernia with a short segment of small bowel present with distention of the bowel, gallstones were noted as well incidentally. Initial GFR was 30, creatinine 2.2 and this creatinine came down to 1.5 with hydration and a GFR of 46.4. CBC, urinalysis was unremarkable. COVID serology was negative as well. He was taken to the operating room by Dr. Conley that evening because of the suspected entrapment of the small bowel and hernia repair, bowel decompression was accomplished. Postoperatively, he has advanced his diet slowly. He is now on ADA diet, doing well and will be discharged later today if is okay with technical assistance consultant. FINAL DIAGNOSIS: 1. Umbilical hernia with small bowel incarceration secondary to obstruction. 2. Chronic kidney disease, 3B, stable. OPERATIONS AND PROCEDURES: Exploratory laparotomy and umbilical hernia repair. COMPLICATIONS: None. DISPOSITION: Home meds remain all the same. Pain meds per Dr. Conley. Office followup with our office as needed and his office in 1 to 2 weeks and ADA diet. PROGNOSIS: Good. LIANE DR: Cammie TID: [id number]
[2021-04-30] MEDS: metFORMIN 500 MG TABLET PO SCH (08:53)
[2021-04-30] MEDS: TAMSULOSIN 0.4 MG CAP.ER.24H. PO SCH (08:54)
[2021-04-30] MEDS: APIXABAN 5 MG TABLET. PO SCH (08:54)
[2021-04-30] MEDS: LISINOPRIL 20 MG TABLET PO SCH (08:54)
[2021-04-30] MEDS: ASPIRIN ENTERIC COATED 81 MG TABLET.DR. PO SCH (09:02)
[2021-04-30] MEDS: CITALOPRAM 20 MG TABLET. PO SCH (09:02)
[2021-04-30] MEDS: PANTOPRAZOLE 40 MG TABLET.DR. PO SCH (09:02)
[2021-04-30] MEDS: DOCUSATE SODIUM 100 MG CAPSULE. PO SCH (09:02)
[2021-04-30] MEDS: FINASTERIDE 5 MG TABLET. PO SCH (09:02)
[2021-04-30] MEDS: FLECAINIDE ACETATE 50 MG TABLET. PO SCH (09:05)
[2021-04-30 10:43] VITALS: BP 127/57
--- NOTE | 2021-04-30 10:56 | NUR ---
SS following up with discharge planning. SS reviewed pt chart and discussed with pt RN. Pt has home CPAP machine. COVID19 negative. Discharge orders on the chart for home with home healthcare. Pt accepted on services with [facility], ; fax [phone]. Discharge orders sent to [facility]. Pt's spouse to transport pt to home between 1730 and 1800. Pt's RN notified.
--- NOTE | 2021-04-30 13:03 | PDOC ---
SURGICAL PROGRESS NOTE DATE: 04/30/21 TIME: 13:02 Subjective eating, stooling pain managed Vital Signs Vital Signs Date Time Temp Pulse Resp B/P (MAP) Pulse Ox O2 Delivery O2 Flow Rate FiO2 04/30/21 12:50 94 Nasal Cannula 2.0 04/30/21 12:50 65 127/57 04/30/21 10:43 98.0 20 98.0 I&O Intake and Output 04/30/21 07:00 Intake Total 450 ml Output Total 1700 ml Balance -1250 ml Intake Oral 450 ml Output Urine Total 1700 ml # Voids 1 General: Alert, Oriented X3, Cooperative Abdomen: Soft, Other (incision intact ) Labs Laboratory Tests Test 04/28/21 16:07 04/29/21 08:06 04/29/21 11:44 04/29/21 16:27 Glucose (Fingerstick) 88 mg/dL (70-99) 106 mg/dL (70-99) 82 mg/dL (70-99) 86 mg/dL (70-99) Test 04/29/21 21:12 04/30/21 07:39 04/30/21 11:30 Glucose (Fingerstick) 101 mg/dL (70-99) 91 mg/dL (70-99) 101 mg/dL (70-99) Laboratory Tests Test 04/29/21 16:27 04/29/21 21:12 04/30/21 07:39 04/30/21 11:30 Glucose (Fingerstick) 86 mg/dL (70-99) 101 mg/dL (70-99) 91 mg/dL (70-99) 101 mg/dL (70-99) Problem List Problems Medical Problems: (1) Abdominal pain Status: Acute (2) Hernia, umbilical, with obstruction Status: Acute Assessment/Plan ok to dc home FU 2 weeks Justicifation of Admission Dx: Justifications for Admission: Justification of Admission Dx: N/A ANAHY ARRIAGA APRN Apr 30, 2021 13:03
--- NOTE | 2021-04-30 13:10 | PATHOLOGY ---
[facility] Accession Number: [id number] . 01 Material submitted: . small bowel - SMALL BOWEL WITH HERNIA SAC AND CONTENTS . 01 Clinical history: . INCARCERATED VENTRAL HERNIA EXPLORATORY LAPAROTORY SMALL BOWEL RESECTION = CLOSURE OF VENTRAL HERNIA . 02 Diagnosis: Segments of small intestine and attached mesentery, focal mesothelial-lined fibromembranous and fibroadipose tissue, and omentum, incarcerated ventral hernia repair with small bowel resection: - Early hemorrhagic infarction of mid portion of segment of small intestine. - Proximal and distal margins of small intestine viable. - Hernia sac showing focal mild chronic inflammation. - Omentum showing no diagnostic abnormalities. (JPM:[facility]; 04/30/2021) [facility] 04/30/2021 1019 Local . 02 Electronically signed: . Cain Mcdonald MD, Pathologist NPI- [id number] . 01 Gross description: . The specimen is received in formalin, labeled "Jerson Espinal, small bowel with hernia sac and contents". Received is an unoriented segment of small bowel measuring 34.3 cm in length and ranges in diameter from 1.3-2.7 cm. Both margins are stapled closed. The serosal surface is pink-pimentel to dusky pimentel-brown in appearance, with the dusky area located at the mid aspect of the specimen. The attached mesenteric fat measures up to 2.0 cm in thickness. The specimen is opened along the antimesenteric line to reveal light davis to brown-black mucosa. On either side of the dusky pimentel-brown area, the mucosa has normal architectural folds. Within this area, there is minimal architectural folding and the mucosa appears grossly ischemic. No distinct nodules or lesions are noted grossly. . Also received within the specimen container are two segments of pink-pimentel fibromembranous tissue measuring 7.3 x 4.8 x 2.0 cm, and a segment of bright yellow omentum measuring 17.3 x 15.9 x 3.2 cm. No distinct nodules or lesions are noted within the fibromembranous tissue. Sectioning through the omentum reveals bright yellow, lobulated cut surfaces with no grossly distinct nodules or lesions. The specimen is submitted representatively as follows: . A1-A2 both margins of small bowel A3 specialty sales representative sections of normal-appearing mucosa small bowel A4 specialty sales representative sections from ischemic-appearing area of small bowel A5 specialty sales representative sections of separately submitted fibromembranous tissue A6 specialty sales representative section of omentum. ([facility]; 04/29/2021) QAC/QAC 04/29/2021 1436 Local . 02 Pathologist provided ICD-10: K55.069, K42.9 . 02 CPT . 735462 Specimen Comment: A courtesy copy of this report has been sent to [phone] Specimen Comment: Report sent to Performed at: 01 [facility] [address], [place] [id number] MD Damian Land MD Phone: [phone] Performed at: 02 [facility] [address] [place], [place] [id number] MD Cain Mcdonald MD Phone: [phone]
[2021-04-30 14:34] VITALS: BP 135/60
--- NOTE | 2021-04-30 19:06 | NUR ---
DISCHARGED PATIENT TO HOME. DISCHARGE INSTRUCTIONS GIVEN. PIV AND HEART MONITOR REMOVED. ESCORTED PATIENT OFF UNIT PER WHEELCHAIR INTO A PRIVATE VEHICLE.
== END 2021-04-30 19:30 | disposition home or self-care (01) | DRG 329 ==
LOC: ER 18:13 → 6 SOUTH 21:25
PROVIDERS: ADMIT Family Medicine; ATTEND Family Medicine
PROC: 0DB80ZZ Excision of Small Intestine, Open Approach (ICD-10-PCS; principal; 2021-04-25)
PROC: 0WQF0ZZ Repair Abdominal Wall, Open Approach (ICD-10-PCS; 2021-04-25)
PROC: 5A09357 Assistance with Respiratory Ventilation, Less than 24 Consecutive Hours, Continuous Positive Airway Pressure (ICD-10-PCS; 2021-04-26)
PROC: 0D9670Z Drainage of Stomach with Drainage Device, Via Natural or Artificial Opening (ICD-10-PCS; 2021-04-26)
PROC: 5A09357 Assistance with Respiratory Ventilation, Less than 24 Consecutive Hours, Continuous Positive Airway Pressure (ICD-10-PCS; 2021-04-27)
PROC: 5A09357 Assistance with Respiratory Ventilation, Less than 24 Consecutive Hours, Continuous Positive Airway Pressure (ICD-10-PCS; 2021-04-28)
PROC: 5A09357 Assistance with Respiratory Ventilation, Less than 24 Consecutive Hours, Continuous Positive Airway Pressure (ICD-10-PCS; 2021-04-29)
PROC: 5A09357 Assistance with Respiratory Ventilation, Less than 24 Consecutive Hours, Continuous Positive Airway Pressure (ICD-10-PCS; 2021-04-29)
PROC: 5A09357 Assistance with Respiratory Ventilation, Less than 24 Consecutive Hours, Continuous Positive Airway Pressure (ICD-10-PCS; 2021-04-30)
DX: K42.0 Umbilical hernia with obstruction, without gangrene (principal); N17.0 Acute kidney failure with tubular necrosis; I13.0 Hypertensive heart and chronic kidney disease with heart failure and stage 1 through stage 4 chronic kidney disease, or unspecified chronic kidney disease; Z68.42 Body mass index [BMI] 45.0-49.9, adult; K46.0 Unspecified abdominal hernia with obstruction, without gangrene; E11.22 Type 2 diabetes mellitus with diabetic chronic kidney disease; E78.5 Hyperlipidemia, unspecified; I25.10 Atherosclerotic heart disease of native coronary artery without angina pectoris; I48.91 Unspecified atrial fibrillation; I50.9 Heart failure, unspecified; J44.9 Chronic obstructive pulmonary disease, unspecified; K80.20 Calculus of gallbladder without cholecystitis without obstruction; N18.32 Chronic kidney disease, stage 3b; Z79.01 Long term (current) use of anticoagulants; Z82.49 Family history of ischemic heart disease and other diseases of the circulatory system; Z20.822 Contact with and (suspected) exposure to COVID-19
CPT/HCPCS: 36415; 74176; 80048; 80053; 81001; 82565; 82962; 85025; 87426; 88307; 96374; 96375; 96376; A4315; A4364; A4452; A4930; A6402; J0330; J0690; J1100; J1815; J2270; J2405; J2704; J2710; J3010; J3490; J7030; J7060; J7120; U0003; U0005; 97110-GP; 97116-GP; 97530-GP; 97535-GO; 99285-25; G0378

== ENCOUNTER 2021-08-30 12:09 | Day surgery (SDC) | payer MEDICARE ==
[~2021-08-30] VITALS: Ht 177.8 cm; Wt 149.0 kg
[~2021-08-30 12:09] MED LIST changes: +ALBU2.5V8 INH; +FINA5TAB4 PO; +HYDROmorphone 2 MG/ML INJ. IVP PRN; +IV RINGERS,LACTATED 1000ML 1,000 ML IV SCH; +MELA5TAB20 PO; +MORPHINE SULFATE 2 MG/ML INJ. IVP PRN; +PROCHLORPERAZINE 10 MG/2 ML VIAL. IVP PRN; +SPIR25TA5 PO; +TRAM50TA PO; +UMEC1DIS IH; +fentaNYL PF VIAL 100 MCG/2 ML VIAL IVP PRN
[2021-08-30] MEDS ORDERED: LIDOCAINE 2% VISCOUS 15 ML SOLUTION. ONE (12:42)
[2021-08-30] MEDS ORDERED: LIDOCAINE 2% TOPICAL JELLY 30GM TUBE. TP ONE (12:42)
[2021-08-30] MEDS ORDERED: BENZOCAINE ONE 20% MUCOSAL SPRAY. (12:42)
[2021-08-30] MEDS ORDERED: IV NORMAL SALINE 1000ML BAG 1,000 ML IV SCH (13:00)
[2021-08-30] MEDS ORDERED: PROPOFOL 10 MG/ML (20ML) VIAL. IV ONE (13:07)
[2021-08-30 14:22] VITALS: BP 107/47
--- NOTE | 2021-08-30 18:54 | CARD ---
MR#: [id number] Date of Study: 08/30/2021 Ordering Physician: BELLA BO, Referring Physician: Shana FLORES: Dajuan Parada [facility] APPROVED REPORT EXAM: Transesophageal echocardiogram with color flow Doppler. INDICATION Pre-Op RISK FACTORS Hypertension Obesity Hyperlipidemia Reason For Test : Rule out Intracardiac Thrombus. PROCEDURE After obtaining informed consent, patient underwent transesophageal echo in the PACU. Type of Sedation : Conscious Sedation Sedation was administered by the Anesthesia department.. Sedation was achieved with Propofol intravenously. Transesophageal probe was inserted and advanced into esophagus by Bella Bo MD. The ERWIN was performed without complications. Throughout the procedure, the blood pressure, pulse oximetry, cardiac rhythm, and rate were monitored . LEFT VENTRICLE The left ventricle is normal size. There is normal left ventricular wall thickness. Left ventricular systolic function is normal. Left ventricular ejection fraction is 50%. There is normal LV segmental wall motion. No left ventricle thrombus noted on this study. There is no ventricular septal defect vi sualized. There is no left ventricular aneurysm. There is no mass noted in the left ventricle. RIGHT VENTRICLE The right ventricle is normal size. There is normal right ventricular wall thickness. The right ventr icular systolic function is normal. ATRIA The left atrium is moderately dilated. There is echocardiographic smoke present in the left atrium. T he right atrium size is normal. The interatrial septum is intact with no evidence for an atrial septa l defect or patent foramen ovale as noted on 2-D or Doppler imaging. There is no thrombus noted in th e left atrial appendage. AORTIC VALVE The aortic valve is mildly sclerotic. The aortic valve is trileaflet. Doppler and Color Flow revealed trace aortic regurgitation. There is no significant aortic valvular stenosis. There is no aortic marely vular vegetation. MITRAL VALVE The mitral valve is thickened but opens well. There is no evidence of mitral valve prolapse. There is no mitral valve stenosis. Doppler and Color-flow revealed trace to mild mitral regurgitation. TRICUSPID VALVE The tricuspid valve is normal in structure and function. Doppler and Color Flow revealed trace tricus pid regurgitation. There is no tricuspid valve prolapse or vegetation. There is no tricuspid valve st enosis. PULMONIC VALVE The pulmonary valve is normal in structure and function. Doppler and Color Flow revealed no pulmonic valvular regurgitation. There is no pulmonic valvular stenosis. GREAT VESSELS The aortic root is normal in size. The ascending aorta is normal in size. The pulmonary artery is nor mal. The IVC is normal in size and collapses >50% with inspiration. Critical Notification Critical Value: No <Conclusion> The left ventricle is normal size. Left ventricular systolic function is normal. Left ventricular ejection fraction is 50%. There is normal LV segmental wall motion. The left atrium is moderately dilated. There is echocardiographic smoke present in the left atrium. The right atrium size is normal. The interatrial septum is intact with no evidence for an atrial septal defect or patent foramen ovale as noted on 2-D or Doppler imaging. There is no thrombus noted in the left atrial appendage. Doppler and Color Flow revealed trace aortic regurgitation. There is no significant aortic valvular stenosis. Doppler and Color-flow revealed trace to mild mitral regurgitation. Doppler and Color Flow revealed trace tricuspid regurgitation. Signed by : Bella Bo MD Electronically Approved : 08/30/2021 18:54:03
== END 2021-08-30 14:30 | disposition home or self-care (01) ==
LOC: SURG 12:09
PROVIDERS: ATTEND Internal Medicine Cardiovascular Disease
DX: I48.91 Unspecified atrial fibrillation (principal); I08.3 Combined rheumatic disorders of mitral, aortic and tricuspid valves; I13.0 Hypertensive heart and chronic kidney disease with heart failure and stage 1 through stage 4 chronic kidney disease, or unspecified chronic kidney disease; I50.9 Heart failure, unspecified; N18.30 Chronic kidney disease, stage 3 unspecified; E78.00 Pure hypercholesterolemia, unspecified; E11.22 Type 2 diabetes mellitus with diabetic chronic kidney disease; E66.9 Obesity, unspecified; K21.9 Gastro-esophageal reflux disease without esophagitis; M19.90 Unspecified osteoarthritis, unspecified site; F41.9 Anxiety disorder, unspecified; F32.9 Major depressive disorder, single episode, unspecified; N40.0 Benign prostatic hyperplasia without lower urinary tract symptoms; J44.9 Chronic obstructive pulmonary disease, unspecified; G47.30 Sleep apnea, unspecified; Z87.891 Personal history of nicotine dependence; Z85.828 Personal history of other malignant neoplasm of skin; Z79.82 Long term (current) use of aspirin; Z79.899 Other long term (current) drug therapy; Z98.890 Other specified postprocedural states
CPT/HCPCS: 93312; 93325; J2704